=== PATIENT | female | born 1980 | race Caucasian/White ===

== ENCOUNTER → 2017-10-09 | Outpatient (CLI) | payer BC ==
--- NOTE | 2017-10-09 17:47 | SFUN ---
SLEEP STUDY FOLLOW UP NOTE DATE OF SERVICE: 10/09/2017 37-year-old lady has been [facility] for treatment of significant excessive daytime sleepiness. Presently she came to discuss results of polysomnogram and multiple sleep latency test. I discussed results of sleep studies with the patient in details. No any significant respiratory abnormalities during sleep study. Apnea-hypopnea index 1.0, lowest oxygen level 93.2%. Multiple sleep latency test showed pathological mean sleep latency only 1.7 minutes with 2 sleep onset REM periods. During the night study patient slept for 7 hours and 40 minutes. Latency to first REM period was slightly short 62.5 minutes, four REM periods have been documented during the night study. MEDICATIONS: None. PHYSICAL EXAM: GENERAL Patient in no distress. VITAL SIGNS BP 147/98, HR 108, RR 16, height 5 foot 5, weight 129, BMI 21.5. HEENT PERRLA, EOMI, evaluation of oropharynx showed moderately low position of soft palate. Overbite. NECK Supple, no JVD. Thyroid is not palpable. LUNGS Clear to percussion and to auscultation. Good air exchange. No wheezing or rhonchi. HEART S1, S2 tachycardia. No murmurs, gallops, or rubs. ABDOMEN Soft and nontender. Bowel sounds are present. No organomegaly appreciated. EXTREMITIES No clubbing or cyanosis. [employer]INE OPERATOR Awake, alert, and oriented X3. Cranial nerves 2 to 7 intact. There is no fasciculation or atrophy. noted. No focal deficits observed. IMPRESSION: 1. No significant respiratory abnormalities during sleep study. Normal oxygenation during the sleep. 2. 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 3. History of trigeminal neuralgia. 4. Status post total hysterectomy. 5. Status post breast augmentation. 6. Status post surgery on the tongue. PLAN: 1. Treatment with modafinil. I would prefer this medication because the patient has some tachycardia in the office. I will titrate the dose up to therapeutic level. 2. Sleep hygiene with regular time in bed for at least 7.5 hours. 3. Daytime naps permitted. 4. No driving if feeling any sleepiness. 5. HLA profile for narcolepsy. Thank you very much for allowing me to participate in management of your patient. Sincerely, Agustin Cordova MD, PhD, FAASM Diplomat of [employer] [place] [employer] Worker of [facility] [place] [email or web address] / ALLAN: [phone] /
== END | disposition home or self-care (01) ==
LOC: SLEEP 15:46
PROVIDERS: ATTEND Internal Medicine
DX: G47.8 Other sleep disorders (principal); G47.52 REM sleep behavior disorder; G47.419 Narcolepsy without cataplexy; Z86.69 Personal history of other diseases of the nervous system and sense organs; Z90.710 Acquired absence of both cervix and uterus; Z98.82 Breast implant status; Z98.890 Other specified postprocedural states

== ENCOUNTER 2019-08-08 00:18 | Emergency (ER) | payer BC ==
[2019-08-08 00:24] VITALS: TEMP 98.6
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
[2019-08-08 01:23] VITALS: BP 144/98; PULSE 84; RESP 16
== END 2019-08-08 01:47 | disposition home or self-care (01) ==
LOC: EC 00:18
DX: S60.222A Contusion of left hand, initial encounter (principal); F41.9 Anxiety disorder, unspecified; R06.02 Shortness of breath; Z87.891 Personal history of nicotine dependence; Z88.0 Allergy status to penicillin; Y04.0XXA Assault by unarmed brawl or fight, initial encounter; Y93.89 Activity, other specified
CPT/HCPCS: 71046; 93005; 99284

== ENCOUNTER 2019-10-11 10:52 | Observation (INO) | payer BC ==
[2019-10-11] MEDS ORDERED: METOCLOPRAMIDE 5 MG/ML 2 ML VIAL IVP STA (11:23)
[2019-10-11] MEDS ORDERED: diphenhydrAMINE 50 MG/ML 1 ML VIAL IVP STA (11:23)
[2019-10-11] MEDS ORDERED: SODIUM CHLORIDE 0.9% 1,000 ML IV ONE (11:23)
[2019-10-11] MEDS ORDERED: FAMOTIDINE 20 MG/2 ML VIAL IV STA (11:28)
--- NOTE | 2019-10-11 11:28 | ED ---
General Adult HPI - General Chief complaint: Chest Pain Stated complaint: chest pain, headache Time Seen by Provider: 10/11/19 11:05 Source: patient, RN notes reviewed, old records reviewed Mode of arrival: ambulatory Limitations: no limitations - History of Present Illness Initial comments: 39 -year-old female presenting for evaluation chest pain, EKG changes, headache. Patient was seen by her primary care physician, had EKG showing left ventricular hypertrophy and chest pain for the past 3 weeks. She was sent for evaluation of the ER. She has a stress test scheduled for Friday of this week which is 2 days from now patient has no history of coronary artery disease, no history of DVT or PE. She describes the chest pain as a burning sensation in the center of her chest. Second complaint today is of headache. She has a right-sided headache with photophobia. She states she does occasionally get headaches but this is more severe. Headache began at approximately 8:30 this morning, 3 hours prior to arrival. - Related Data Home Medications Medication Instructions Recorded Confirmed Dextroamphetamine/Amphetamine 20 mg PO PC-LUNCH 10/11/19 10/11/19 [Dextroamp-Amphetamin 20 mg Tab] Dextroamphetamine/Amphetamine 30 mg PO QAM 10/11/19 10/11/19 [Dextroamp-Amphetamin 20 mg Tab] Potassium Chloride ER [K-Dur 10] 10 meq PO DAILY 10/11/19 10/11/19 amLODIPine [Norvasc] 10 mg PO HS 10/11/19 10/11/19 lamoTRIgine [LaMICtal] 200 mg PO HS 10/11/19 10/11/19 Allergies Allergy/AdvReac Type Severity Reaction Status Date / Time Penicillins Allergy Rash/Hives Verified 10/11/19 12:11 Review of Systems ROS Statement: Those systems with pertinent positive or pertinent negative responses have been documented in the HPI. ROS Other: All systems not noted in ROS Statement are negative. Past Medical History Past Medical History: Hypertension Additional Past Medical History / Comment(s): nacrolepsy, anxiety History of Any Multi-Drug Resistant Organisms: None Reported Past Surgical History: Hysterectomy Additional Past Surgical History / Comment(s): breast augmentation Past Psychological History: Anxiety, Panic Disorder Smoking Status: Former smoker Past Alcohol Use History: Occasional Past Drug Use History: None Reported General Exam Limitations: no limitations General appearance: alert, in no apparent distress Head exam: Present: atraumatic, normocephalic Eye exam: Present: normal appearance, PERRL, EOMI. Absent: scleral icterus, periorbital swelling, periorbital tenderness ENT exam: Present: normal exam Neck exam: Present: normal inspection. Absent: tenderness, meningismus Respiratory exam: Present: normal lung sounds bilaterally. Absent: respiratory distress, wheezes Cardiovascular Exam: Present: regular rate, normal rhythm, normal heart sounds GI/Abdominal exam: Present: soft. Absent: distended, tenderness, guarding Extremities exam: Present: normal inspection, normal capillary refill. Absent: pedal edema Neurological exam: Present: alert, oriented X3, CN II-XII intact. Absent: motor sensory deficit Psychiatric exam: Present: normal affect, normal mood Skin exam: Present: warm, dry, intact. Absent: cyanosis, diaphoretic Course Vital Signs 10/11/19 11:07 Temperature 97.9 F Pulse Rate 93 Respiratory 18 Rate Blood Pressure 153/91 O2 Sat by Pulse 100 Oximetry EKG Findings - EKG Comments: EKG Findings:: EKG: Normal sinus rhythm, LVH, rate of 93, MN interval 126, QRS duration 92, QTC 467, no ST segment elevation Medical Decision Making - Medical Decision Making 31-year-old female sent from primary care office for evaluation of chest pain. EKG shows sinus rhythm with no ST segment elevation. Second complaint of headache. Patient's headache resolved with treatment in the emergency depa rtment. Head CT is negative for intracranial hemorrhage or mass effect. Chest x-ray negative for focal pneumonia no acute findings per patient has normal CBC, normal CMP, negative initial troponin. There was concern about patient's primary care physician regarding this chest pain. Recommend observation for serial enzymes, telemetry, cardiology consultation. - Lab Data Result diagrams: 10/11/19 11:12 10/11/19 11:12 Lab Results 10/11/19 10/11/19 10/11/19 Range/Units 11:12 11:12 11:12 WBC 5.0 (3.8-10.6) k/uL RBC 4.95 (3.80-5.40) m/uL Hgb 15.3 (11.4-16.0) gm/dL Hct 45.1 (34.0-46.0) % MCV 91.1 (80.0-100.0) fL MCH 31.0 (25.0-35.0) pg MCHC 34.0 (31.0-37.0) g/dL RDW 12.3 (11.5-15.5) % Plt Count 327 (150-450) k/uL Neutrophils % 59 % Lymphocytes % 31 % Monocytes % 5 % Eosinophils % 2 % Basophils % 1 % Neutrophils # 2.9 (1.3-7.7) k/uL Lymphocytes # 1.5 (1.0-4.8) k/uL Monocytes # 0.3 (0-1.0) k/uL Eosinophils # 0.1 (0-0.7) k/uL Basophils # 0.0 (0-0.2) k/uL PT 9.7 (9.0-12.0) sec INR 0.9 (<1.2) APTT 24.1 (22.0-30.0) sec Sodium 138 (137-145) mmol/L Potassium 3.7 (3.5-5.1) mmol/L Chloride 104 (98-107) mmol/L Carbon Dioxide 26 (22-30) mmol/L Anion Gap 8 mmol/L BUN 20 H (7-17) mg/dL Creatinine 0.63 (0.52-1.04) mg/dL Est GFR (CKD-EPI)AfAm >90 (>60 ml/min/1.73 sqM) Est GFR (CKD-EPI)NonAf >90 (>60 ml/min/1.73 sqM) Glucose 105 H (74-99) mg/dL Calcium 9.4 (8.4-10.2) mg/dL Magnesium 2.3 (1.6-2.3) mg/dL Total Bilirubin 0.8 (0.2-1.3) mg/dL AST 22 (14-36) U/L ALT 19 (4-34) U/L Alkaline Phosphatase 60 (38-126) U/L Troponin I (0.000-0.034) ng/mL Total Protein 7.8 (6.3-8.2) g/dL Albumin 4.9 (3.5-5.0) g/dL 10/11/19 Range/Units 11:12 WBC (3.8-10.6) k/uL RBC (3.80-5.40) m/uL Hgb (11.4-16.0) gm/dL Hct (34.0-46.0) % MCV (80.0-100.0) fL MCH (25.0-35.0) pg MCHC (31.0-37.0) g/dL RDW (11.5-15.5) % Plt Count (150-450) k/uL Neutrophils % % Lymphocytes % % Monocytes % % Eosinophils % % Basophils % % Neutrophils # (1.3-7.7) k/uL Lymphocytes # (1.0-4.8) k/uL Monocytes # (0-1.0) k/uL Eosinophils # (0-0.7) k/uL Basophils # (0-0.2) k/uL PT (9.0-12.0) sec INR (<1.2) APTT (22.0-30.0) sec Sodium (137-145) mmol/L Potassium (3.5-5.1) mmol/L Chloride (98-107) mmol/L Carbon Dioxide (22-30) mmol/L Anion Gap mmol/L BUN (7-17) mg/dL Creatinine (0.52-1.04) mg/dL Est GFR (CKD-EPI)AfAm (>60 ml/min/1.73 sqM) Est GFR (CKD-EPI)NonAf (>60 ml/min/1.73 sqM) Glucose (74-99) mg/dL Calcium (8.4-10.2) mg/dL Magnesium (1.6-2.3) mg/dL Total Bilirubin (0.2-1.3) mg/dL AST (14-36) U/L ALT (4-34) U/L Alkaline Phosphatase (38-126) U/L Troponin I <0.012 (0.000-0.034) ng/mL Total Protein (6.3-8.2) g/dL Albumin (3.5-5.0) g/dL Disposition Clinical Impression: Chest pain Disposition: ADMITTED IP TO THIS [facility] Condition: Stable Is patient prescribed a controlled substance at d/c from ED?: No Referrals: Shelbi Wright DO [Primary Care Provider] - 1-2 days Decision to Admit Reason: Admit from EC Decision Date: 10/11/19 Decision Time: 13:10
[2019-10-11 11:42] LABS: INR 0.9 (<1.2); Partial Thromboplastin Time 24.1 sec (22.0-30.0); Prothrombin Time 9.7 sec (9.0-12.0)
[2019-10-11 11:43] LABS: ALT 19 U/L (4-34); AST 22 U/L (14-36); African American GFR (CKD) >90 (>60 ml/min/1.73 sqM); Albumin 4.9 g/dL (3.5-5.0); Alkaline Phosphatase 60 U/L (38-126); Anion Gap 8 mmol/L; Blood Urea Nitrogen 20 mg/dL (7-17); Calcium 9.4 mg/dL (8.4-10.2); Carbon Dioxide 26 mmol/L (22-30); Chloride 104 mmol/L (98-107); Glucose 105 mg/dL (74-99); Magnesium 2.3 mg/dL (1.6-2.3); Non-African American GFR(CKD) >90 (>60 ml/min/1.73 sqM); Potassium 3.7 mmol/L (3.5-5.1); Sodium 138 mmol/L (137-145); Total Bilirubin 0.8 mg/dL (0.2-1.3); Total Protein 7.8 g/dL (6.3-8.2)
[2019-10-11 11:45] LABS: Basophils % (A) 1 %; Eosinophils # (A) 0.1 k/uL (0-0.7); Eosinophils % (A) 2 %; HCT 45.1 % (34.0-46.0); HGB 15.3 gm/dL (11.4-16.0); Lymphocytes # (A) 1.5 k/uL (1.0-4.8); Lymphocytes % (A) 31 %; MCV 91.1 fL (80.0-100.0); Mean Platelet Volume 7.7; Monocytes # (A) 0.3 k/uL (0-1.0); Monocytes % (A) 5 %; Neutrophils # (A) 2.9 k/uL (1.3-7.7); Neutrophils % (A) 59 %; Platelet Count 327 k/uL (150-450); RBC 4.95 m/uL (3.80-5.40); RDW 12.3 % (11.5-15.5)
--- NOTE | 2019-10-11 11:56 | CT ---
EXAMINATION TYPE: CT brain wo con DATE OF EXAM: 10/11/2019 COMPARISON: None HISTORY: Headache CT DLP: 1956.[address] of the brain was performed. The ventricles, basal cisterns and sulci overlying the cerebral convexities demonstrate a normal appe arance. There is no evidence for intracranial hemorrhage or sulcal effacement. No mass effects are seen. Osseous calvarium is intact. If symptoms persist consider MRI as clinically warranted. IMPRESSION: 1. No acute intracranial process is seen at this time.
--- NOTE | 2019-10-11 11:58 | XR ---
EXAMINATION TYPE: XR chest 2V DATE OF EXAM: 10/11/2019 COMPARISON: 08/08/2019 HISTORY: Chest pain TECHNIQUE: Frontal and lateral views of the chest are obtained. FINDINGS: There is no focal air space opacity, pleural effusion, or pneumothorax seen. Pulmonary hyp erinflation may relate to the degree of inspiration or COPD. The cardiac silhouette size is within no rmal limits. The osseous structures are intact. IMPRESSION: No acute cardiopulmonary process.
[2019-10-11] MEDS ORDERED: NALOXONE 0.4 MG/ML 1 ML VIAL IV PRN (13:07)
[2019-10-11] MEDS ORDERED: ONDANSETRON 4 MG/2 ML VIAL IVP PRN (13:07)
[2019-10-11] MEDS ORDERED: MORPHINE SULFATE 4 MG/ML SYRINGE IV PRN (13:07)
[2019-10-11] MEDS ORDERED: CALCIUM CARBONATE 500 MG CHEWABLE PO PRN (13:07)
[2019-10-11] MEDS: ACETAMINOPHEN TAB 325 MG TAB PO PRN ×2 (15:34→23:34)
[2019-10-11] MEDS: SODIUM CHLORIDE 0.9% 1,000 ML IV SCH (17:11)
[2019-10-11] MEDS ORDERED: amLODIPine 10 MG TAB PO SCH (21:00)
[2019-10-11] MEDS ORDERED: lamoTRIgine 100 MG TAB PO SCH (21:00)
[2019-10-12 07:28] VITALS: RESP 16
[2019-10-12] MEDS ORDERED: PANTOPRAZOLE 40 MG/10 ML VIAL IV SCH (09:00)
[2019-10-12] MEDS ORDERED: POTASSIUM CHLORIDE ER 10 MEQ TAB.ER.PRT PO SCH (09:00)
[2019-10-12] MEDS: ACETAMINOPHEN TAB 325 MG TAB PO PRN (09:54)
[2019-10-12] MEDS ORDERED: PANTOPRAZOLE 40 MG TABLET PO SCH (11:30)
--- NOTE | 2019-10-12 11:31 | P.CRDCN ---
<Remedios Falcon - Last Filed: 10/12/19 11:19> History of Present Illness History of present illness: HISTORY OF PRESENTING ILLNESS This is a pleasant 39-year-old female past medical history significant for a tension, narcolepsy and anxiety. Denies prior history of coronary artery disease and does not follow in the office with a product specialist. We have been asked to see in consultation for chest pain. She states for the previous 2-3 weeks intermittently she has been experiencing a dull achy type pain in her chest in the mid-sternal region with radiation at times through to her back. She was originally diagnosed with hypertension about 10 yrs ago and was medicated for some time however had stopped the medications about 4-6 yrs ago. Again in the last few months her blood pressures have been elevated again and she was recently started on amlodipine. On arrival blood pressure was 153/91. She has also been experiencing intermittent headaches unrelieved by OTC measures. DIAGNOSTICS EKG reveals sinus mechanism with considerable LVH. Chest xray negative for an acute cardiopulmonary process. CT brain negative for an acute intracranial process. Laboratory reviewed, CBC unremarkable, sodium 138, potassium 3.7, creatinine 0.63, magnesium 2.3, cardiac enzymes negative 3, TSH 1.3. Current cardiac medications include amlodipine 10 mg at bedtime. REVIEW OF SYSTEMS At the time of my exam: CONSTITUTIONAL: Denies fever or chills. CARDIOVASCULAR: Denies chest pain, shortness of breath, orthopnea, PND or palpitations. RESPIRATORY: Denies cough. GASTROINTESTINAL: Denies abdominal pain, diarrhea, constipation, nausea or vomiting. MUSCULOSKELETAL: Denies myalgias. NEUROLOGIC: Denies numbness, tingling or weakness. ENDOCRINE: Denies fatigue, weight change, polydipsia or polyurina. GENITOURINARY: Denies burning, hematuria or urgency with micturation. HEMATOLOGIC: Denies history of anemia or bleeding. PHYSICAL EXAMINATION Blood pressure 126/75 heart rate 84 afebrile and maintaining oxygen saturation on room air. CONSTITUTIONAL: No apparent distress. HEENT: Head is normocephalic. Pupils are equal, round. Sclerae anicteric. Mucous membranes of the mouth are moist. No JVD. No carotid bruit. CHEST EXAMINATION: Lungs are clear to auscultation. No chest wall tenderness is noted on palpation or with deep breathing. HEART EXAMINATION: Regular rate and rhythm. S1, S2 heard. No murmurs, gallops or rub. ABDOMEN: Soft, nontender. Positive bowel sounds. EXTREMITIES: 2+ peripheral pulses, no lower extremity edema and no calf tenderness. NEUROLOGIC EXAMINATION: Patient is awake, alert and oriented x3. ASSESSMENT Chest pain, atypical. An acute event has been ruled out. Hypertension, uncontrolled PLAN An acute coronary event has been ruled out. Obtain 2D echocardiogram and doppler study to assess cardiac structure and function. Perform exercise stress echo to assess for stress induced ischemia. Of more concern is her blood pressure and why she had hypertension at such a young age when it was first diagnosed. We will check b/l renal arteries, metaephrines, cortisol, renin and aldoseterone levels. Recommend discontinuation of adderall and complete alcohol cessation given her LVH. If stress test is normal she can be discharged and followed closely in the office with Dr. Del Rio on discharge. Thank you kindly for this consultation. Nurse Practitioner note has been reviewed, I agree with a documented findings and plan of care. Patient was seen and examined. Past Medical History Past Medical History: Hypertension Additional Past Medical History / Comment(s): nacrolepsy, anxiety History of Any Multi-Drug Resistant Organisms: None Reported Past Surgical History: Ablation, Hysterectomy Additional Past Surgical History / Comment(s): breast augmentation, uterine ablation Past Psychological History: Anxiety, Panic Disorder Smoking Status: Former smoker Past Alcohol Use History: Occasional Past Drug Use History: None Reported Medications and Allergies Home Medications Medication Instructions Recorded Confirmed Type Dextroamphetamine/Amphetamine 20 mg PO PC-LUNCH 10/11/19 10/11/19 History [Dextroamp-Amphetamin 20 mg Tab] Dextroamphetamine/Amphetamine 30 mg PO QAM 10/11/19 10/11/19 History [Dextroamp-Amphetamin 20 mg Tab] Potassium Chloride ER [K-Dur 10] 10 meq PO DAILY 10/11/19 10/11/19 History amLODIPine [Norvasc] 10 mg PO HS 10/11/19 10/11/19 History lamoTRIgine [LaMICtal] 200 mg PO HS 10/11/19 10/11/19 History Allergies Allergy/AdvReac Type Severity Reaction Status Date / Time Penicillins Allergy Rash/Hives Verified 10/11/19 12:11 Physical Exam Vitals: Vital Signs Temp Pulse Pulse Resp BP BP BP 10/12/19 07:00 98.2 F 84 16 126/75 10/12/19 04:00 97.9 F 75 18 114/70 10/12/19 03:28 77 18 10/12/19 00:00 98.3 F 84 18 118/72 10/11/19 19:42 82 18 10/11/19 19:39 98.2 F 82 18 131/79 10/11/19 13:50 98.1 F 86 18 129/78 10/11/19 13:00 88 19 126/78 10/11/19 12:30 89 12 10/11/19 12:00 87 16 152/89 10/11/19 11:30 96 14 153/91 Pulse Ox 10/12/19 07:00 98 10/12/19 04:00 98 10/12/19 03:28 10/12/19 00:00 99 10/11/19 19:42 10/11/19 19:39 98 10/11/19 13:50 99 10/11/19 13:00 100 10/11/19 12:30 100 10/11/19 12:00 100 10/11/19 11:30 100 Intake and Output 10/11/19 10/12/19 10/12/19 22:59 06:59 14:59 Intake Total 600 Balance 600 Intake: Oral 600 Other: Voiding Method Toilet Toilet Toilet # Voids 1 1 Weight 58.97 kg Results 10/11/19 11:12 10/11/19 11:12 Cardiac Enzymes 10/11/19 10/11/19 10/11/19 Range/Units 11:12 11:12 17:08 AST 22 (14-36) U/L Troponin I <0.012 <0.012 (0.000-0.034) ng/mL 10/11/19 Range/Units 23:22 AST (14-36) U/L Troponin I <0.012 (0.000-0.034) ng/mL Coagulation 10/11/19 Range/Units 11:12 PT 9.7 (9.0-12.0) sec APTT 24.1 (22.0-30.0) sec CBC 10/11/19 Range/Units 11:12 WBC 5.0 (3.8-10.6) k/uL RBC 4.95 (3.80-5.40) m/uL Hgb 15.3 (11.4-16.0) gm/dL Hct 45.1 (34.0-46.0) % Plt Count 327 (150-450) k/uL Comprehensive Metabolic Panel 10/11/19 Range/Units 11:12 Sodium 138 (137-145) mmol/L Potassium 3.7 (3.5-5.1) mmol/L Chloride 104 (98-107) mmol/L Carbon Dioxide 26 (22-30) mmol/L BUN 20 H (7-17) mg/dL Creatinine 0.63 (0.52-1.04) mg/dL Glucose 105 H (74-99) mg/dL Calcium 9.4 (8.4-10.2) mg/dL AST 22 (14-36) U/L ALT 19 (4-34) U/L Alkaline Phosphatase 60 (38-126) U/L Total Protein 7.8 (6.3-8.2) g/dL Albumin 4.9 (3.5-5.0) g/dL Current Medications Generic Name Dose Route Start Last Admin Trade Name Freq PRN Reason Stop Dose Admin Acetaminophen 650 mg 10/11/19 13:07 10/12/19 09:54 Tylenol Tab PO 650 mg Q6HR PRN Administration Mild Pain or Fever > 100.5 Amlodipine Besylate 10 mg 10/11/19 21:00 10/11/19 20:13 Norvasc PO 10 mg HS JAILYN Administration Calcium Carbonate/Glycine 1,000 mg 10/11/19 13:07 Tums PO Q4HR PRN Dyspepsia Sodium Chloride 1,000 mls @ 20 mls/hr 10/11/19 13:15 10/11/19 17:11 Saline 0.9% IV Not Given .Q24H JAILYN Lamotrigine 200 mg 10/11/19 21:00 10/11/19 20:13 Lamictal PO 200 mg HS JAILYN Administration Morphine Sulfate 4 mg 10/11/19 13:07 Morphine Sulfate (Inj) IV Q4HR PRN Severe Pain Naloxone HCl 0.2 mg 10/11/19 13:07 Narcan IV Q2M PRN Opioid Reversal Ondansetron HCl 4 mg 10/11/19 13:07 Zofran IVP Q8HR PRN Nausea And Vomiting Pantoprazole Sodium 40 mg 10/12/19 09:00 Protonix IV DAILY JAILYN Potassium Chloride 10 meq 10/12/19 09:00 K-Dur 10 PO DAILY JAILYN Intake and Output 10/11/19 10/12/19 10/12/19 22:59 06:59 14:59 Intake Total 600 Balance 600 Intake: Oral 600 Other: Voiding Method Toilet Toilet Toilet # Voids 1 1 Weight 58.97 kg Patient Weight 10/13/19 06:59 Weight 58.97 kg 10/11/19 11:12 10/11/19 11:12 <Hema Del Rio - Last Filed: 10/12/19 13:01> History of Present Illness History of present illness: Patient interviewed and examined by Dr. Del Rio History of hypertension with left ventricular hypertrophy Onset of hypertension before the age of 30 years Secondary hypertension workup will be initiated with serum aldosterone, plasma renin activity, metanephrines and renal artery stenosis evaluation Potassium has been mildly reduced Low salt diet Minimize alcohol consumption and avoid binge drinking, discussed in detail Risks of untreated hypertension including heart failure and stroke discussed Exercise stress echo today Physical Exam Vitals: Vital Signs Temp Pulse Resp BP BP Pulse Ox 10/12/19 11:40 98.3 F 98 16 125/85 98 10/12/19 07:00 98.2 F 84 16 126/75 98 10/12/19 04:00 97.9 F 75 18 114/70 98 10/12/19 03:28 77 18 10/12/19 00:00 98.3 F 84 18 118/72 99 10/11/19 19:42 82 18 10/11/19 19:39 98.2 F 82 18 131/79 98 10/11/19 13:50 98.1 F 86 18 129/78 99 Intake and Output 10/11/19 10/12/19 10/12/19 22:59 06:59 14:59 Intake Total 600 Balance 600 Intake: Oral 600 Other: Voiding Method Toilet Toilet Toilet # Voids 1 1 Weight 58.97 kg Results 10/11/19 11:12 10/11/19 11:12 Cardiac Enzymes 10/11/19 10/11/19 Range/Units 17:08 23:22 Troponin I <0.012 <0.012 (0.000-0.034) ng/mL Current Medications Generic Name Dose Route Start Last Admin Trade Name Freq PRN Reason Stop Dose Admin Acetaminophen 650 mg 10/11/19 13:07 10/12/19 09:54 Tylenol Tab PO 650 mg Q6HR PRN Administration Mild Pain or Fever > 100.5 Amlodipine Besylate 10 mg 10/11/19 21:00 10/11/19 20:13 Norvasc PO 10 mg HS JAILYN Administration Calcium Carbonate/Glycine 1,000 mg 10/11/19 13:07 Tums PO Q4HR PRN Dyspepsia Sodium Chloride 1,000 mls @ 20 mls/hr 10/11/19 13:15 10/11/19 17:11 Saline 0.9% IV Not Given .Q24H JAILYN Lamotrigine 200 mg 10/11/19 21:00 10/11/19 20:13 Lamictal PO 200 mg HS JAILYN Administration Morphine Sulfate 4 mg 10/11/19 13:07 Morphine Sulfate (Inj) IV Q4HR PRN Severe Pain Naloxone HCl 0.2 mg 10/11/19 13:07 Narcan IV Q2M PRN Opioid Reversal Ondansetron HCl 4 mg 10/11/19 13:07 Zofran IVP Q8HR PRN Nausea And Vomiting Pantoprazole Sodium 40 mg 10/12/19 11:30 Protonix PO AC-BRKFST JAILYN Potassium Chloride 10 meq 10/12/19 09:00 K-Dur 10 PO DAILY JAILYN Intake and Output 10/11/19 10/12/19 10/12/19 22:59 06:59 14:59 Intake Total 600 Balance 600 Intake: Oral 600 Other: Voiding Method Toilet Toilet Toilet # Voids 1 1 Weight 58.97 kg Patient Weight 10/13/19 06:59 Weight 58.97 kg 10/11/19 11:12 10/11/19 11:12
[2019-10-12 11:41] VITALS: TEMP 98.3
--- NOTE | 2019-10-12 13:14 | US ---
EXAMINATION TYPE: US renal artery duplex complet DATE OF EXAM: 10/12/2019 COMPARISON: NONE CLINICAL HISTORY: htn. MEASUREMENTS: RENAL SIZE: Rt Kidney: 10.9 x 3.5 x 5.0cm Lt Kidney: 10.9 x 4.8 x 4.5 RESISTANCE INDEX Right: 0.45 Left: 0.54 RA/AO RATIO (< 3.5 ) Right: 1.5 Left: 1.6 RA VELOCITY ( < 180 cm/s) Right: 114cm/s Left: 122cm/s Study slightly limited by overlying bowel gas. IMPRESSION: No sonographic evidence of renal artery stenosis.
[2019-10-12] MEDS: SODIUM CHLORIDE 0.9% 1,000 ML IV SCH (13:17)
[2019-10-12] MEDS ORDERED: methylPREDNISolone SOD SUCCI 125 MG/2 ML VIAL IV STA (15:53)
--- NOTE | 2019-10-12 15:56 | ECHOF ---
Referral Reason:cp, lvh MEASUREMENTS -------- HEIGHT: 165.1 cm WEIGHT: 59.0 kg BP: IVSd: 0.9 cm (0.6 - 1.1) LVIDd: 3.9 cm (3.9 - 5.3) LVPWd: 0.9 cm (0.6 - 1.1) IVSs: 1.2 cm LVIDs: 2.4 cm LVPWs: 1.2 cm RVIDd: 2.4 cm (< 3.3) Ao Diam: 3.4 cm (2.0 - 3.7) AV Cusp: 1.9 cm (1.5 - 2.6) EPSS: 0.6 cm MV E Shai: 0.63 m/s MV DecT: 181 ms MV A Shai: 0.60 m/s MV E/A Ratio: 1.06 RAP: 5.00 mmHg RVSP: 14.73 mmHg MV EF SLOPE: 104.97 mm/s (70 - 150) MV EXCURSION: 20.02 mm (> 18.000) FINDINGS -------- Sinus rhythm. This was a technically good study. LV size, wall thickness and systolic function are normal, with an EF greater than 55%. The left magnolia tricular size is normal. The right ventricle is normal in size. The left atrial size is normal. The right atrial size is normal. The aortic valve is trileaflet, and appears structurally normal. No aortic stenosis or regurgitation. Mild mitral regurgitation is present. Mild tricuspid regurgitation present. Right ventricular systolic pressure is normal at < 35 mmHg. There is no evidence of pulmonary hypertension. There is no pulmonic regurgitation present. The aortic root size is normal. There is no pericardial effusion. CONCLUSIONS -------- 1. Sinus rhythm. 2. This was a technically good study. 3. LV size, wall thickness and systolic function are normal, with an EF greater than 55%. 4. The left ventricular size is normal. 5. The right ventricle is normal in size. 6. The left atrial size is normal. 7. The right atrial size is normal. 8. The aortic valve is trileaflet, and appears structurally normal. No aortic stenosis or regurgitati on. 9. Mild mitral regurgitation is present. 10. Mild tricuspid regurgitation present. 11. Right ventricular systolic pressure is normal at < 35 mmHg. 12. There is no evidence of pulmonary hypertension. 13. There is no pulmonic regurgitation present. 14. The aortic root size is normal. 15. There is no pericardial effusion. POLE INSPECTOR: Renetta Hess RDCS
[2019-10-12 16:00] VITALS: BP 125/77; PULSE 89
--- NOTE | 2019-10-12 16:14 | ECHOS ---
STRESS ECHOCARDIOGRAM LUMASON: @@ Vial INDICATIONS: Chest pain. MEDICATIONS: Adderall, Lortab, K-Dur, Norvasc, Lamictal BASELINE HEART RATE: 73 BASELINE BLOOD PRESSURE: 124/72 MAXIMUM HEART RATE: 170 MAXIMUM BLOOD PRESSURE: 169/86 85% MPHR: 155 100% MPHR: 182 METS: 12.1 MAXIMUM STAGE REACHED: IV TOTAL EXERCISE TIME: 12:00 CLINICAL INFORMATION: This is a 39-year-old female who presented with chest discomfort and stress echo was performed. Baseline heart rate 73 beats per minute. Baseline blood pressure 124/72 mmHg. Baseline 12-lead ECG shows normal sinus rhythm with normal cardiac intervals. The patient exercised on a Esa protocol for 12 minutes, achieving a peak heart rate of 170 beats per minute. Normal blood pressure response to exercise. There was no ECG evidence for ischemia. No arrhythmias were noted. Baseline 2D echo images showed normal LV size and systolic function without segmental wall motion abnormalities. At peak exercise, there was excellent augmentation of overall LV contractility without development of any wall motion abnormalities. At recovery, regional global LV systolic function remained normal. IMPRESSION: No ECG or echocardiographic evidence for ischemia. Normal heart rate and blood pressure response to exercise. Excellent exercise capacity. MMODL / IJN: [id number] /
--- NOTE | 2019-10-12 22:42 | P.HPIM ---
History of Present Illness H&P Date: 10/12/19 Chief Complaint: chest pain Diana Turk is a 39-year-old female with PMH significant for hypertension, anxiety who presented to the ED with chest pain. She states for the previous 2-3 weeks intermittently she has been experiencing a dull achy type pain in her chest in the mid-sternal region with radiation at times through to her back. She feels she has been having URI symptoms over this time as well with congesiton and cough. She feels cough makes her chest pain worse. She was originally diagnosed with hypertension about 10 yrs ago and was medicated for some time however had stopped the medications about 4-6 yrs ago. Again in the last few months her blood pressures have been elevated again and she was recently started on amlodipine. On arrival blood pressure was 153/91, trop negative, EKG with sinus rhythm. Review of Systems All systems: negative Constitutional: Denies chills, Denies fever Eyes: denies blurred vision, denies pain Ears, nose, mouth and throat: Reports nasal congestion, Reports post-nasal drip, Denies headache, Denies sore throat Cardiovascular: Reports chest pain, Denies lightheadedness, Denies shortness of breath Respiratory: Reports cough Gastrointestinal: Denies abdominal pain, Denies diarrhea, Denies nausea, Denies vomiting Genitourinary: Denies dysuria, Denies hematuria Musculoskeletal: Denies myalgias Integumentary: Denies pruritus, Denies rash Neurological: Denies numbness, Denies weakness Psychiatric: Denies anxiety, Denies depression Endocrine: Denies fatigue, Denies weight change Past Medical History Past Medical History: Hypertension Additional Past Medical History / Comment(s): nacrolepsy, anxiety History of Any Multi-Drug Resistant Organisms: None Reported Past Surgical History: Ablation, Hysterectomy Additional Past Surgical History / Comment(s): breast augmentation, uterine ablation Past Psychological History: Anxiety, Panic Disorder Smoking Status: Former smoker Past Alcohol Use History: Occasional Past Drug Use History: None Reported Medications and Allergies Home Medications Medication Instructions Recorded Confirmed Type Dextroamphetamine/Amphetamine 20 mg PO PC-LUNCH 10/11/19 10/11/19 History [Dextroamp-Amphetamin 20 mg Tab] Dextroamphetamine/Amphetamine 30 mg PO QAM 10/11/19 10/11/19 History [Dextroamp-Amphetamin 20 mg Tab] Potassium Chloride ER [K-Dur 10] 10 meq PO DAILY 10/11/19 10/11/19 History amLODIPine [Norvasc] 10 mg PO HS 10/11/19 10/11/19 History lamoTRIgine [LaMICtal] 200 mg PO HS 10/11/19 10/11/19 History Allergies Allergy/AdvReac Type Severity Reaction Status Date / Time Penicillins Allergy Rash/Hives Verified 10/11/19 12:11 Physical Exam Vitals: Vital Signs Temp Pulse Resp BP BP Pulse Ox 10/12/19 15:59 98.3 F 89 16 125/77 98 10/12/19 11:40 98.3 F 98 16 125/85 98 10/12/19 07:00 98.2 F 84 16 126/75 98 10/12/19 04:00 97.9 F 75 18 114/70 98 10/12/19 03:28 77 18 10/12/19 00:00 98.3 F 84 18 118/72 99 Intake and Output 10/12/19 10/12/19 10/12/19 06:59 14:59 22:59 Intake Total 322 Balance 322 Intake: Oral 222 Other 100 Other: Voiding Method Toilet Toilet # Voids 1 Weight 58.97 kg General: well nourished, well developed, NAD. Vitals reviewed Eyes: PERRL, EOMI, conjunctiva normal HENT: normocephalic, mucus membranes moist Neck: supple, no JVD Lungs: normal respiratory effort, no wheezes or rales CV: Regular rate and rhythm, no murmur. Peripheral pulses 2+ Abdomen: soft, nondistended, no organomegaly Lymph: no cervical or axillary LAD Skin: warm and dry. Neuro: A&Ox3, normal mood and affect Results CBC & Chem 7: 10/11/19 11:12 10/11/19 11:12 Thrombosis Risk Factor Assmnt - Choose All That Apply Any of the Below Risk Factors Present?: No Other Risk Factors: No Thrombosis Risk Factor Assessment Level: Very Low Risk Assessment and Plan (1) Viral URI Status: Acute Code(s): J06.9 - ACUTE UPPER RESPIRATORY INFECTION, UNSPECIFIED SNOMED Code(s): 380091316 (2) Chest pain Status: Acute Code(s): R07.9 - CHEST PAIN, UNSPECIFIED SNOMED Code(s): 24762025 Plan: 1. Chest pain. ACS ruled out. Cardiology consulted for further evaluation; suspected related to viral illness 2. HTN. Continue norvasc
--- NOTE | 2019-10-12 22:44 | P.DS ---
Providers Date of admission: 10/11/19 13:07 Expected date of discharge: 10/12/19 Attending physician: Martínez Silverio MD Consults: 10/11/19 13:07 Consult Physician Routine Consulting Provider: Tim Jordan Consult Reason/Comments: CP Do you want consulting provider notified?: Yes Primary care physician: Shelbi Wright - Discharge Diagnosis(es) (1) Viral URI Status: Acute (2) Chest pain Status: Acute Hospital Course: Diana Turk is a 39-year-old female with PMH significant for hypertension, anxiety who presented to the ED with chest pain. She states for the previous 2-3 weeks intermittently she has been experiencing a dull achy type pain in her chest in the mid-sternal region with radiation at times through to her back. She feels she has been having URI symptoms over this time as well with congesiton and cough. She feels cough makes her chest pain worse. She was originally diagnosed with hypertension about 10 yrs ago and was medicated for some time however had stopped the medications about 4-6 yrs ago. Again in the last few months her blood pressures have been elevated again and she was recently started on amlodipine. On arrival blood pressure was 153/91, trop negative, EKG with sinus rhythm. Pt was admitted to observation and evaluated by cardiology. She underwent stress echo as well as renal artery ultrasound which were normal. She was given solumedrol for suspected viral URI and is discharged in stable condition and recommended to follow up with her PCP and tmr teacher. Patient Condition at Discharge: Stable Plan - Discharge Summary Discharge Rx Participant: No New Discharge Prescriptions: Continue lamoTRIgine [LaMICtal] 200 mg PO HS amLODIPine [Norvasc] 10 mg PO HS Potassium Chloride ER [K-Dur 10] 10 meq PO DAILY Dextroamphetamine/Amphetamine [Dextroamp-Amphetamin 20 mg Tab] 30 mg PO QAM Dextroamphetamine/Amphetamine [Dextroamp-Amphetamin 20 mg Tab] 20 mg PO PC- LUNCH Discharge Medication List Dextroamphetamine/Amphetamine [Dextroamp-Amphetamin 20 mg Tab] 20 mg PO PC-LUNCH 10/11/19 [History] Dextroamphetamine/Amphetamine [Dextroamp-Amphetamin 20 mg Tab] 30 mg PO QAM 10/11/19 [History] Potassium Chloride ER [K-Dur 10] 10 meq PO DAILY 10/11/19 [History] amLODIPine [Norvasc] 10 mg PO HS 10/11/19 [History] lamoTRIgine [LaMICtal] 200 mg PO HS 10/11/19 [History] Follow up Appointment(s)/Referral(s): Hema Del Rio MD [STAFF PHYSICIAN] - 11/02/19 9:30 am () Shelbi Wright DO [Primary Care Provider] - 1-2 days Discharge Disposition: HOME SELF-CARE
== END 2019-10-12 16:27 | disposition home or self-care (01) ==
LOC: EC 10:52 → 1SOBS 13:07 → UNDODISOB 10-12 15:19
PROVIDERS: ADMIT Family Medicine; ATTEND Family Medicine
DX: J06.9 Acute upper respiratory infection, unspecified (principal); R07.9 Chest pain, unspecified; I10 Essential (primary) hypertension; F41.9 Anxiety disorder, unspecified; G47.419 Narcolepsy without cataplexy; Z87.891 Personal history of nicotine dependence; Z90.710 Acquired absence of both cervix and uterus; Z79.899 Other long term (current) drug therapy; Z88.0 Allergy status to penicillin
CPT/HCPCS: 93005 ×2; 96375 ×2; 96361; 96374; 99285; 36415; 93306; 93351; 83835; 80053; 84443; 82533; 82088; 84244; 83735; 84484; 85025; 85610; 85730; 71046; 93975; 70450; G0378 ×2; J1200; J2765; J2930

== ENCOUNTER → 2020-02-04 | Outpatient (CLI) | payer BC, OTHER ==
[2020-02-04 15:16] LABS: C Reactive Protein <5.0 mg/L (<10.0)
--- NOTE | 2020-02-04 15:50 | US ---
EXAMINATION TYPE: US abdomen complete DATE OF EXAM: 02/04/2020 COMPARISON: NONE CLINICAL HISTORY: R14.0 ABDOMINAL DISTENSION. Pain and bloating EXAM MEASUREMENTS: Liver Length: 14.2 cm Gallbladder Wall: .2 cm CBD: .4 cm Spleen: 9.6 cm Right Kidney: 10.1 x 3.6 x 4.5 cm Left Kidney: 9.0 x 4.8 x 3.8 cm Pancreas: wnl Liver: Mild heterogeneity suggest some mild underlying fatty dictation. Gallbladder: wnl Evidence for sonographic Lindsey's sign: No CBD: wnl Spleen: wnl Right Kidney: wnl Left Kidney: wnl Upper IVC: wnl Abd Aorta: wnl IMPRESSION: 1. Mild fatty infiltration of liver.
[2020-02-04 18:21] LABS: Gliadin AB IgA, Deaminated NEGATIVE (NEGATIVE); Gliadin AB IgA, Unit <0.2 U/mL; Gliadin AB IgG, Deaminated NEGATIVE (NEGATIVE)
== END | disposition home or self-care (01) ==
LOC: RADUSWWP 14:38
PROVIDERS: ATTEND Physician Assistant
DX: K76.0 Fatty (change of) liver, not elsewhere classified (principal); R14.0 Abdominal distension (gaseous)
CPT/HCPCS: 76700; 83516; 84443; 85652; 86140

== ENCOUNTER 2020-06-05 17:45 | Emergency (ER) | payer BC, OTHER ==
[2020-06-05 18:32] VITALS: TEMP 98.7
[2020-06-05] MEDS ORDERED: IBUPROFEN 600 MG TAB PO STA (19:10)
[2020-06-05 19:52] VITALS: RESP 16
--- NOTE | 2020-06-05 20:19 | XR ---
EXAMINATION TYPE: XR chest 2V DATE OF EXAM: 06/05/2020 COMPARISON: 10/11/2019. HISTORY: Sore throat and fatigue. TECHNIQUE: Frontal and lateral views of the chest are obtained. FINDINGS: There is no focal air space opacity, pleural effusion, or pneumothorax seen. The cardiac silhouette size is within normal limits. The osseous structures are intact. IMPRESSION: No acute cardiopulmonary process.
--- NOTE | 2020-06-05 20:49 | ED ---
General Adult HPI - General Chief complaint: Upper Respiratory Infection Stated complaint: sore throat/headache/back pain Time Seen by Provider: 06/05/20 18:35 Source: patient Mode of arrival: ambulatory Limitations: no limitations - History of Present Illness Initial comments: 40-year-old female presents to the emergency department with complaints of sore throat accompanied by intermittent painful swallowing and chills. Also complains of nasal drainage that she describes as thin and clear. Reports increased fatigue along with mild headache and states her symptoms have progressively worsened over the past week. Complains of pain in her left upper chest and back that worsens with palpation and movement. Patient does express concern about a possible COVID exposure as well. Also states that multiple members of her household have been ill with viral upper respiratory infections recently. Patient mentions she currently has numbness around her mouth that does not affect her tongue or her lips; states it began while in the emergency department and previously occurred last Friday. He states the numbness resolved spontaneously and was not accompanied by any speech difficulties. Patient denies any recent rash, fever, cough, shortness of breath, abdominal pain, nausea, vomiting, diarrhea, constipation, tingling, dizziness, weakness, justin turia, dysuria, urinary urgency, urinary frequency, visual changes, or any other complaints. - Related Data Home Medications Medication Instructions Recorded Confirmed Dextroamphetamine/Amphetamine 20 mg PO PC-LUNCH 10/11/19 10/11/19 [Dextroamp-Amphetamin 20 mg Tab] Dextroamphetamine/Amphetamine 30 mg PO QAM 10/11/19 10/11/19 [Dextroamp-Amphetamin 20 mg Tab] Potassium Chloride ER [K-Dur 10] 10 meq PO DAILY 10/11/19 10/11/19 amLODIPine [Norvasc] 10 mg PO HS 10/11/19 10/11/19 lamoTRIgine [LaMICtal] 200 mg PO HS 10/11/19 10/11/19 Previous Rx's Medication Instructions Recorded Fluticasone Nasal Marble [Flonase 2 spr EA NOSTRIL DAILY #1 bottle 06/05/20 Nasal Marble] guaiFENesin-DM 600/30MG [Mucinex 1 each PO Q12HR #10 tab.er.12h 06/05/20 Dm] Allergies Allergy/AdvReac Type Severity Reaction Status Date / Time Penicillins Allergy Rash/Hives Verified 06/05/20 18:30 Review of Systems ROS Statement: Those systems with pertinent positive or pertinent negative responses have been documented in the HPI. ROS Other: All systems not noted in ROS Statement are negative. Past Medical History Past Medical History: Hypertension Additional Past Medical History / Comment(s): nacrolepsy, anxiety History of Any Multi-Drug Resistant Organisms: None Reported Past Surgical History: Ablation, Hysterectomy Additional Past Surgical History / Comment(s): breast augmentation, uterine ablation Past Psychological History: Anxiety, Panic Disorder Past Alcohol Use History: Occasional Past Drug Use History: None Reported General Exam Limitations: no limitations (Well-developed, well-nourished female in no acute distress. Present to temperature 98.7F, pulse 62, respirations 18, blood pressure 162/96, pulse ox 100% on room air.) General appearance: alert, in no apparent distress ENT exam: Present: mucous membranes moist, TM's normal bilaterally Expanded Throat exam: tonsillar erythema. negative: tonsillomegaly, tonsillar exudate Respiratory exam: Present: normal lung sounds bilaterally. Absent: respiratory distress, wheezes, rales, rhonchi, stridor Cardiovascular Exam: Present: regular rate, normal rhythm, normal heart sounds. Absent: systolic murmur, diastolic murmur, rubs, gallop, clicks GI/Abdominal exam: Present: soft, normal bowel sounds. Absent: distended, tenderness, guarding, rebound, rigid Neurological exam: Present: alert, oriented X3, CN II-XII intact Psychiatric exam: Present: normal affect, normal mood Skin exam: Present: warm, dry, intact, normal color. Absent: rash Course Vital Signs 06/05/20 06/05/20 06/05/20 18:28 19:49 21:07 Temperature 98.7 F Pulse Rate 62 83 Respiratory 18 16 16 Rate Blood Pressure 162/96 163/91 O2 Sat by Pulse 100 95 Oximetry Medical Decision Making - Medical Decision Making 40-year-old female presents to the emergency Department with multiple complaints including sore throat, nasal drainage, headache, and fatigue. Patient reports multiple household members with viral upper respiratory infections and a concern for possible COVID exposure. Patient states her symptoms have progressively worsened over the past week. Oropharynx is found to be reddened but no tonsillar hypertrophy or exudate is noted. Patient is afebrile and is not tachycardic or tachypneic. Patient was swabbed for influenza and strep a, both of which were negative. Covid swab is pending. Patient also reports circumoral numbness that does not affect her lips or tongue; speech remains fluent and coordinated. Patient was given Motrin for discomfort and Mucinex for nasal symptoms with overall improvement. Patient instructed to follow-up with her primary care provider in the next 1-2 days for recheck. Encouraged to return to the emergency department if she develops any chest pain, shortness of breath, difficulty breathing. Patient verbalizes understanding and agrees with this plan. - Lab Data Lab Results 06/05/20 06/05/20 Range/Units 19:09 19:10 Influenza Type A RNA Not Detected (Not Detectd) Influenza Type B (PCR) Not Detected (Not Detectd) Group A Strep Rapid Negative (Negative) - Radiology Data Radiology results: report reviewed 2 view chest x-ray was obtained. Impression per DR. Shah includes no acute cardiopulmonary process. Disposition Clinical Impression: Upper respiratory infection, Sinusitis Disposition: HOME SELF-CARE Condition: Good Instructions (If sedation given, give patient instructions): Upper Respiratory Infection (ED), Allergies (ED) Additional Instructions: Use Flonase as directed. Use mucinex DM as directed. Await COVID-19 results. Follow-up with your primary care physician for recheck in 1-2 days. Return to the emergency department immediately for any new, worsening, or concerning symptoms. Prescriptions: Fluticasone Nasal Marble [Flonase Nasal Marble] 2 spr EA NOSTRIL DAILY #1 bottle guaiFENesin-DM 600/30MG [Mucinex Dm] 1 each PO Q12HR #10 tab.er.12h Is patient prescribed a controlled substance at d/c from ED?: No Referrals: Shelbi Wright DO [Primary Care Provider] - 1-2 days Time of Disposition: 20:49
[2020-06-05] MEDS ORDERED: guaiFENesin-DM 600/30MG 1 EACH TAB.ER.12H PO STA (20:54)
[2020-06-05 21:08] VITALS: BP 163/91; PULSE 83
== END 2020-06-05 21:09 | disposition home or self-care (01) ==
LOC: EC 17:45
DX: J01.90 Acute sinusitis, unspecified (principal); R20.0 Anesthesia of skin; I10 Essential (primary) hypertension; F41.9 Anxiety disorder, unspecified; Z79.899 Other long term (current) drug therapy; Z88.0 Allergy status to penicillin; Z20.828 Contact with and (suspected) exposure to other viral communicable diseases
CPT/HCPCS: 87081; 87430; 87502; 71046; 99283; U0003

== ENCOUNTER 2020-10-02 03:08 | Observation (INO) | payer BC, OTHER ==
[2020-10-02] MEDS ORDERED: ONDANSETRON 4 MG/2 ML VIAL IVP STA (03:29)
[2020-10-02] MEDS ORDERED: SODIUM CHLORIDE 0.9% 1,000 ML IV STA (03:29)
[2020-10-02] MEDS ORDERED: PANTOPRAZOLE 40 MG/10 ML VIAL IVP STA (03:29)
[2020-10-02] MEDS ORDERED: MORPHINE SULFATE 4 MG/ML SYRINGE IVP STA (03:31)
--- NOTE | 2020-10-02 03:32 | ED ---
Abdominal Pain HPI - General Chief Complaint: Abdominal Pain Stated Complaint: ABD pain Time Seen by Provider: 10/02/20 03:10 Source: patient, RN notes reviewed, old records reviewed Mode of arrival: ambulatory Limitations: no limitations - History of Present Illness Initial Comments: This is a 31-year-old female DF she presents today for evaluation regards to bilateral oophorectomy all day. She is about 12 hours of his symptoms of persistent bowel movements. Also abdominal pain cramping and bloating. Otherwise no recent travel history no similar patients with similar symptoms. No prior history of similar symptoms per patient herself. The blood is just blood Doppler was still with no history of hemorrhoids. Patient very anxious and feels weak has seen GI in the past with colonoscopy in the past MD Complaint: abdominal pain, other (GI bleed) -: hour(s) Location: diffuse, bilateral flank Radiation: bilateral flank Migration to: no migration Severity scale (1-10): 6 Quality: cramping, stabbing, aching Consistency: constant, intermittent Improves With: bowel movement Associated Symptoms: nausea, vomiting - Related Data Home Medications Medication Instructions Recorded Confirmed Dextroamphetamine/Amphetamine 20 mg PO PC-LUNCH 10/11/19 10/11/19 [Dextroamp-Amphetamin 20 mg Tab] Dextroamphetamine/Amphetamine 30 mg PO QAM 10/11/19 10/11/19 [Dextroamp-Amphetamin 20 mg Tab] Potassium Chloride ER [K-Dur 10] 10 meq PO DAILY 10/11/19 10/11/19 amLODIPine [Norvasc] 10 mg PO HS 10/11/19 10/11/19 lamoTRIgine [LaMICtal] 200 mg PO HS 10/11/19 10/11/19 Previous Rx's Medication Instructions Recorded Fluticasone Nasal Junior [Flonase 2 spr EA NOSTRIL DAILY #1 bottle 06/05/20 Nasal Junior] guaiFENesin-DM 600/30MG [Mucinex 1 each PO Q12HR #10 tab.er.12h 06/05/20 Dm] Allergies Allergy/AdvReac Type Severity Reaction Status Date / Time Penicillins Allergy Rash/Hives Verified 10/02/20 03:17 Review of Systems ROS Statement: Those systems with pertinent positive or pertinent negative responses have been documented in the HPI. ROS Other: All systems not noted in ROS Statement are negative. Past Medical History Past Medical History: GERD/Reflux, Hypertension Additional Past Medical History / Comment(s): nacrolepsy, anxiety History of Any Multi-Drug Resistant Organisms: None Reported Past Surgical History: Ablation, Hysterectomy Additional Past Surgical History / Comment(s): breast augmentation, uterine ablation Past Psychological History: Anxiety, Panic Disorder Smoking Status: Former smoker Past Alcohol Use History: Occasional Past Drug Use History: None Reported General Exam Limitations: no limitations Course Vital Signs 10/02/20 03:13 Temperature 98.7 F Pulse Rate 88 Respiratory 20 Rate Blood Pressure 155/100 O2 Sat by Pulse 99 Oximetry Medical Decision Making - Medical Decision Making 40 female DF for evaluation of bright red blood per rectum. Patient will be admitted for Dr. Knight to see evaluating - Lab Data Result diagrams: 10/02/20 03:31 10/02/20 03:31 Lab Results 10/02/20 10/02/20 10/02/20 Range/Units 03:31 03:31 03:31 WBC 11.6 H (3.8-10.6) k/uL RBC 5.44 H (3.80-5.40) m/uL Hgb 16.7 H (11.4-16.0) gm/dL Hct 49.7 H (34.0-46.0) % MCV 91.4 (80.0-100.0) fL MCH 30.6 (25.0-35.0) pg MCHC 33.5 (31.0-37.0) g/dL RDW 12.9 (11.5-15.5) % Plt Count 289 (150-450) k/uL MPV 8.5 Neutrophils % 77 % Lymphocytes % 15 % Monocytes % 4 % Eosinophils % 2 % Basophils % 1 % Neutrophils # 9.0 H (1.3-7.7) k/uL Lymphocytes # 1.8 (1.0-4.8) k/uL Monocytes # 0.5 (0-1.0) k/uL Eosinophils # 0.2 (0-0.7) k/uL Basophils # 0.1 (0-0.2) k/uL PT 9.7 (9.0-12.0) sec INR 0.9 (<1.2) APTT 23.0 (22.0-30.0) sec Sodium 136 L (137-145) mmol/L Potassium 3.8 (3.5-5.1) mmol/L Chloride 100 (98-107) mmol/L Carbon Dioxide 22 (22-30) mmol/L Anion Gap 14 mmol/L BUN 15 (7-17) mg/dL Creatinine 0.64 (0.52-1.04) mg/dL Est GFR (CKD-EPI)AfAm >90 (>60 ml/min/1.73 sqM) Est GFR (CKD-EPI)NonAf >90 (>60 ml/min/1.73 sqM) Glucose 99 (74-99) mg/dL Calcium 9.3 (8.4-10.2) mg/dL Magnesium 2.1 (1.6-2.3) mg/dL Total Bilirubin 0.8 (0.2-1.3) mg/dL AST 31 (14-36) U/L ALT 38 H (4-34) U/L Alkaline Phosphatase 71 (38-126) U/L Troponin I (0.000-0.034) ng/mL Total Protein 8.5 H (6.3-8.2) g/dL Albumin 5.1 H (3.5-5.0) g/dL Lipase 72 (23-300) U/L Blood Type Blood Type Recheck Bld Type Recheck Status Antibody Screen Spec Expiration Date 10/02/20 10/02/20 Range/Units 03:31 03:31 WBC (3.8-10.6) k/uL RBC (3.80-5.40) m/uL Hgb (11.4-16.0) gm/dL Hct (34.0-46.0) % MCV (80.0-100.0) fL MCH (25.0-35.0) pg MCHC (31.0-37.0) g/dL RDW (11.5-15.5) % Plt Count (150-450) k/uL MPV Neutrophils % % Lymphocytes % % Monocytes % % Eosinophils % % Basophils % % Neutrophils # (1.3-7.7) k/uL Lymphocytes # (1.0-4.8) k/uL Monocytes # (0-1.0) k/uL Eosinophils # (0-0.7) k/uL Basophils # (0-0.2) k/uL PT (9.0-12.0) sec INR (<1.2) APTT (22.0-30.0) sec Sodium (137-145) mmol/L Potassium (3.5-5.1) mmol/L Chloride (98-107) mmol/L Carbon Dioxide (22-30) mmol/L Anion Gap mmol/L BUN (7-17) mg/dL Creatinine (0.52-1.04) mg/dL Est GFR (CKD-EPI)AfAm (>60 ml/min/1.73 sqM) Est GFR (CKD-EPI)NonAf (>60 ml/min/1.73 sqM) Glucose (74-99) mg/dL Calcium (8.4-10.2) mg/dL Magnesium (1.6-2.3) mg/dL Total Bilirubin (0.2-1.3) mg/dL AST (14-36) U/L ALT (4-34) U/L Alkaline Phosphatase (38-126) U/L Troponin I <0.012 (0.000-0.034) ng/mL Total Protein (6.3-8.2) g/dL Albumin (3.5-5.0) g/dL Lipase (23-300) U/L Blood Type O Positive Blood Type Recheck O Pos Bld Type Recheck Status No Antibody Screen NEGATIVE Spec Expiration Date 10/05/20202330 - Radiology Data Radiology results: report reviewed (CT abdomen and pelvis is negative for acute disease), image reviewed Disposition Clinical Impression: Abdominal pain, BRBPR (bright red blood per rectum) Disposition: ADMITTED IP TO THIS [facility] Condition: Good Is patient prescribed a controlled substance at d/c from ED?: No Referrals: Shelbi Wright DO [Primary Care Provider] - 1-2 days
[2020-10-02 03:50] LABS: Basophils # (A) 0.1 k/uL (0-0.2); Basophils % (A) 1 %; Eosinophils # (A) 0.2 k/uL (0-0.7); Eosinophils % (A) 2 %; HCT 49.7 % (34.0-46.0); HGB 16.7 gm/dL (11.4-16.0); Lymphocytes # (A) 1.8 k/uL (1.0-4.8); Lymphocytes % (A) 15 %; MCH 30.6 pg (25.0-35.0); MCHC 33.5 g/dL (31.0-37.0); MCV 91.4 fL (80.0-100.0); Mean Platelet Volume 8.5; Monocytes # (A) 0.5 k/uL (0-1.0); Monocytes % (A) 4 %; Neutrophils % (A) 77 %; Platelet Count 289 k/uL (150-450); RBC 5.44 m/uL (3.80-5.40); RDW 12.9 % (11.5-15.5); WBC 11.6 k/uL (3.8-10.6)
[2020-10-02 04:00] LABS: ALT 38 U/L (4-34); AST 31 U/L (14-36); African American GFR (CKD) >90 (>60 ml/min/1.73 sqM); Albumin 5.1 g/dL (3.5-5.0); Alkaline Phosphatase 71 U/L (38-126); Anion Gap 14 mmol/L; Blood Urea Nitrogen 15 mg/dL (7-17); Calcium 9.3 mg/dL (8.4-10.2); Carbon Dioxide 22 mmol/L (22-30); Chloride 100 mmol/L (98-107); Glucose 99 mg/dL (74-99); Lipase 72 U/L (23-300); Magnesium 2.1 mg/dL (1.6-2.3); Non-African American GFR(CKD) >90 (>60 ml/min/1.73 sqM); Potassium 3.8 mmol/L (3.5-5.1); Sodium 136 mmol/L (137-145); Total Bilirubin 0.8 mg/dL (0.2-1.3); Total Protein 8.5 g/dL (6.3-8.2)
[2020-10-02 04:19] LABS: INR 0.9 (<1.2); Prothrombin Time 9.7 sec (9.0-12.0)
--- NOTE | 2020-10-02 05:56 | CT ---
EXAM: CT Abdomen and Pelvis With Intravenous Contrast CLINICAL HISTORY: Epigastric pain, left flank, history of hysterectomy. TECHNIQUE: Axial computed tomography images of the abdomen and pelvis with intravenous contrast. CTDI is 15.17 mGy and DLP is 648.5 mGy-cm. This CT exam was performed using one or more of the following dose reduction techniques: automated exposure control, adjustment of the mA and/or kV according to patient size, and/or use of iterative reconstruction technique. COMPARISON: No relevant prior studies available. FINDINGS: Lung bases: Unremarkable. No mass. No consolidation. Mediastinum: Small hiatal hernia. ABDOMEN: Liver: Hepatomegaly and/or Rudy's lobe, measuring up to 19.4 cm in greatest craniocaudad dimension, with mild steatosis. Gallbladder and bile ducts: Unremarkable. No calcified stones. No ductal dilation. Pancreas: Unremarkable. No mass. No ductal dilation. Spleen: Unremarkable. No splenomegaly. Adrenals: Unremarkable. No mass. Kidneys and ureters: Probable 5 mm cyst in the upper pole of the left kidney, although too small to characterize. No hydronephrosis. Stomach and bowel: Wall thickening of the descending colon with associated pericolonic fat stranding, likely representing infectious versus inflammatory colitis. Mild colonic diverticulosis without definitive evidence of acute diverticulitis. No obstruction. PELVIS: Appendix: No findings to suggest acute appendicitis. Bladder: Underdistention and/or wall thickening of the urinary bladder raising concern for cystitis. Reproductive: A 1.8 cm hemorrhagic cyst is seen within the left ovary. Status post hysterectomy. Status post bilateral tubal ligation. ABDOMEN and PELVIS: Intraperitoneal space: Mild pelvic free fluid, likely physiologic and/or reactive. No free air. Bones/joints: No acute fracture. No dislocation. Soft tissues: Unremarkable. Vasculature: Unremarkable. No abdominal aortic aneurysm. Lymph nodes: Unremarkable. No enlarged lymph nodes. IMPRESSION: 1. Wall thickening of the descending colon with associated pericolonic fat stranding, likely representing infectious versus inflammatory colitis. 2. Mild colonic diverticulosis without definitive evidence of acute diverticulitis. 3. Underdistention and/or wall thickening of the urinary bladder raising concern for cystitis. Correlate with urinalysis. 4. A 1.8 cm hemorrhagic cyst within the left ovary. Mild pelvic free fluid, likely physiologic and/or reactive. Pelvic ultrasound may be obtained for further evaluation, if clinically indicated. 5. Hepatomegaly and/or Rudy's lobe with mild steatosis.
[2020-10-02] MEDS: SODIUM CHLORIDE 0.9% 1,000 ML IV SCH (06:47)
[2020-10-02] MEDS: ONDANSETRON 4 MG/2 ML VIAL IVP PRN ×3 (08:58→23:22)
[2020-10-02] MEDS: MORPHINE SULFATE 4 MG/ML SYRINGE IV PRN ×4 (08:58→23:22)
[2020-10-02] MEDS: PANTOPRAZOLE 40 MG/10 ML VIAL IV SCH ×2 (08:58→21:47)
[2020-10-02] MEDS ORDERED: atenoloL 25 MG TAB PO SCH (09:00)
[2020-10-02 12:39] LABS: Basophils # (A) 0.1 k/uL (0-0.2); Basophils % (A) 1 %; Eosinophils # (A) 0.1 k/uL (0-0.7); Eosinophils % (A) 2 %; HCT 41.6 % (34.0-46.0); Lymphocytes # (A) 1.8 k/uL (1.0-4.8); Lymphocytes % (A) 24 %; MCH 31.2 pg (25.0-35.0); MCHC 33.6 g/dL (31.0-37.0); MCV 92.8 fL (80.0-100.0); Mean Platelet Volume 8.5; Monocytes # (A) 0.4 k/uL (0-1.0); Monocytes % (A) 6 %; Neutrophils % (A) 66 %; Platelet Count 224 k/uL (150-450); RBC 4.48 m/uL (3.80-5.40); RDW 12.5 % (11.5-15.5); WBC 7.6 k/uL (3.8-10.6)
[2020-10-02] MEDS ORDERED: metroNIDAZOLE 500 MG TAB PO SCH (13:00)
[2020-10-02] MEDS: LEVOFLOXACIN 500MG-D5W PMX 500 MG in DEXTROSE/WATER 1 100ML.BAG IVPB SCH (13:02)
[2020-10-02] MEDS: metroNIDAZOLE 500 MG TAB PO SCH ×2 (16:09→21:47)
--- NOTE | 2020-10-02 19:01 | CONS ---
CONSULTATION DATE OF DICTATION: 10/02/2020 REASON FOR CONSULTATION: Abdominal pain and rectal bleeding of days' duration. HISTORY OF PRESENT ILLNESS: The patient is a 40-year-old pleasant white female admitted to the hospital complaining of acute onset of severe lower abdominal pain that started yesterday morning. Following that she had multiple episodes of bright red blood per rectum; she had at least about 7 or 8 episodes and came into the emergency room and subsequently was admitted to the hospital for further evaluation. Her last episode of rectal bleeding was around midnight last night. She still continues to complain of abdominal pain, which is progressively improving. She did have a CT of the abdomen and pelvis done in the emergency room that showed thickening of the descending colon with associated pericolonic fat stranding suspicious for infectious colitis versus inflammatory colitis and also some diverticulosis noted. Also there was a 1.5 cm hemorrhagic cyst in the left ovary. She never had these symptoms in the past. She reports no recent travel history. No recent antibiotic use. No one in the family has similar symptoms. She denies any fever, chills or night sweats. PAST MEDICAL HISTORY: Significant for hypertension, gastroesophageal reflux disease, anxiety, depression, irritable bowel syndrome. MEDICATIONS: Medications at home include Lamictal, atenolol, Prilosec, Norvasc. ALLERGIES: PENICILLIN. SOCIAL HISTORY: No smoking. No alcohol use. FAMILY HISTORY: Unremarkable. REVIEW OF SYSTEMS: CARDIOPULMONARY: No chest pain or shortness of breath. GENITOURINARY: No dysuria or hematuria. MUSCULOSKELETAL: Unremarkable. SKIN: Unremarkable. ENDOCRINE: Unremarkable. PSYCHIATRIC: Unremarkable. NEUROLOGY: Unremarkable. ENT/VISION: Unremarkable. CONSTITUTIONAL: No recent weight loss. No fever, chills, night sweats. PAST SURGICAL HISTORY: Uterine ablation and hysterectomy. PHYSICAL EXAMINATION: She appears comfortable. No apparent distress. Vital signs are stable. Blood pressure 130/86, pulse rate 69 per minute, and afebrile. HEENT examination unremarkable. Conjunctivae pink. Sclerae anicteric. Oral cavity no lesions. NECK: No JVD or lymph node enlargement. CHEST: Clear to auscultation. HEART: Regular rate and rhythm. ABDOMEN: Soft. There was mild tenderness in the left lower quadrant area. Rest of the abdomen was benign. Bowel sounds are positive. No organomegaly. EXTREMITIES: No pedal edema. SKIN: No rashes. NEUROLOGIC: Alert and oriented x3. No focal deficits. LABS: WBC 11.6, hemoglobin 16.7, platelets 289. Basic metabolic panel is within normal limits. PT and INR within normal limits. Coronavirus PCR is negative. Today repeat hemoglobin is 14 g/dL. IMPRESSION: 1. This is a lady who presented with acute onset of lower abdominal pain associated with multiple episodes of bright red blood per rectum that started yesterday morning. She had several episodes all through the day and her last episode was about [address] of the abdomen showed thickening of the descending colon consistent with acute colitis, possibly infectious versus inflammatory bowel disease. The clinical presentation is more consistent with acute ischemic colitis, but possibility of infectious colitis also needs to be considered. The patient is clinically and hemodynamically stable. She was started on empiric antibiotics with Levaquin and Flagyl yesterday. 2. History of hypertension. 3. History of gastroesophageal reflux disease. 4. History of irritable bowel syndrome. RECOMMENDATIONS: 1. Continue with empiric antibiotics. 2. Start her on clear liquid diet and advance as tolerated tomorrow. 3. No plans for any endoscopic intervention at the present time. 4. Repeat CBC in the morning. We will follow with you. Closely thank you for this consultation. MMODL / IJN: [id number] /
--- NOTE | 2020-10-02 21:02 | P.HPIM ---
History of Present Illness H&P Date: 10/02/20 Chief Complaint: abdominal pain Diana Turk is a 40 yo F with hx HTN who presented to the ED complaining of worsening abdominal pain and rectal bleeding. She states that over the past 2 days she began to notice bilateral lower abdominal pain and has had multiple bloody bowel movements as well. She denies nausea or vomiting. Her pain worsened so she came to the hospital. On presentation she was hypertensive, WBC 11.6k, CT abd/pelvis with pericolonic fat stranding and wall thickening suggestive of colitis. Review of Systems All systems: negative Constitutional: Reports malaise, Reports weakness, Denies chills, Denies fever Eyes: denies blurred vision, denies pain Ears, nose, mouth and throat: Denies headache, Denies sore throat Cardiovascular: Denies chest pain, Denies shortness of breath Respiratory: Denies cough Gastrointestinal: Reports abdominal pain, Reports diarrhea, Reports hematochezia, Denies nausea, Denies vomiting Genitourinary: Denies dysuria, Denies hematuria Musculoskeletal: Denies myalgias Integumentary: Denies pruritus, Denies rash Neurological: Denies numbness, Denies weakness Psychiatric: Denies anxiety, Denies depression Endocrine: Denies fatigue, Denies weight change Past Medical History Past Medical History: GERD/Reflux, Hypertension Additional Past Medical History / Comment(s): nacrolepsy, anxiety History of Any Multi-Drug Resistant Organisms: None Reported Past Surgical History: Ablation, Hysterectomy Additional Past Surgical History / Comment(s): breast augmentation, uterine ablation Past Anesthesia/Blood Transfusion Reactions: No Reported Reaction Past Psychological History: Anxiety, Panic Disorder Smoking Status: Former smoker Past Alcohol Use History: Occasional Past Drug Use History: None Reported Medications and Allergies Home Medications Medication Instructions Recorded Confirmed Type Dextroamphetamine/Amphetamine 20 mg PO PC-LUNCH 10/11/19 10/02/20 History [Dextroamp-Amphetamin 20 mg Tab] Dextroamphetamine/Amphetamine 30 mg PO QAM 10/11/19 10/02/20 History [Dextroamp-Amphetamin 20 mg Tab] amLODIPine [Norvasc] 10 mg PO HS 10/11/19 10/02/20 History lamoTRIgine [LaMICtal] 200 mg PO HS 10/11/19 10/02/20 History Omeprazole [PriLOSEC] 20 mg PO DAILY 10/02/20 10/02/20 History atenoloL [Atenolol] 25 mg PO DAILY 10/02/20 10/02/20 History Allergies Allergy/AdvReac Type Severity Reaction Status Date / Time Penicillins Allergy Rash/Hives Verified 10/02/20 07:24 Physical Exam Vitals: Vital Signs Temp Pulse Pulse Resp BP BP Pulse Ox 10/02/20 20:38 98.1 F 64 18 127/73 98 10/02/20 12:07 98.7 F 69 17 124/74 99 10/02/20 07:45 97.9 F 61 17 138/82 98 10/02/20 06:21 58 L 18 134/89 99 10/02/20 03:13 98.7 F 88 20 155/100 99 Intake and Output 10/02/20 10/02/20 10/02/20 06:59 14:59 22:59 Intake Total 2620 Balance 2620 Intake: Intake, IV Titration 1200 Amount Levofloxacin 500Mg-D5w 100 Pmx 500 mg In Dextrose/ Water 1 100ml.bag @ 100 mls/hr IVPB Q24H [facility] Rx#: [id number] Sodium Chloride 0.9% 1, 1100 000 ml @ 100 mls/hr IV . Q10H [facility] Rx#:[id number] Oral 1420 Other: Voiding Method Toilet # Voids 3 Weight 68.039 kg 68.039 kg General: well nourished, well developed, NAD. Vitals reviewed Eyes: PERRL, EOMI, conjunctiva normal HENT: normocephalic, mucus membranes moist Neck: supple, no JVD Lungs: normal respiratory effort, no wheezes or rales CV: Regular rate and rhythm, no murmur. Peripheral pulses 2+ Abdomen: soft, nondistended, no organomegaly. Tenderness to palpation LLQ Lymph: no cervical or axillary LAD Skin: warm and dry. Neuro: A&Ox3, normal mood and affect Results CBC & Chem 7: 10/02/20 12:20 10/02/20 03:31 Labs: Abnormal Lab Results - Last 24 Hours (Table) 10/02/20 10/02/20 Range/Units 03:31 03:31 WBC 11.6 H (3.8-10.6) k/uL RBC 5.44 H (3.80-5.40) m/uL Hgb 16.7 H (11.4-16.0) gm/dL Hct 49.7 H (34.0-46.0) % Neutrophils # 9.0 H (1.3-7.7) k/uL Sodium 136 L (137-145) mmol/L ALT 38 H (4-34) U/L Total Protein 8.5 H (6.3-8.2) g/dL Albumin 5.1 H (3.5-5.0) g/dL Thrombosis Risk Factor Assmnt - Choose All That Apply Each Factor Represents 1 point: Medical pt on bed rest Other Risk Factors: No Other congenital or acquired thrombophilia - If yes, enter type in comment: No Thrombosis Risk Factor Assessment Total Risk Factor Score: 1 Thrombosis Risk Factor Assessment Level: Low Risk Assessment and Plan (1) Acute colitis Current Visit: Yes Status: Acute Code(s): K52.9 - NONINFECTIVE GASTROENTERITIS AND COLITIS, UNSPECIFIED SNOMED Code(s): 49466623 (2) Essential hypertension Current Visit: Yes Status: Acute Code(s): I10 - ESSENTIAL (PRIMARY) HYPERTENSION SNOMED Code(s): 90176346 Plan: 1. Rectal bleed, secondary to acute colitis. Admit and consult to GI. Start empiric antibiotics and IV protonix 2. Essential hypertension. continue atenolol 3. Major depression. Continue lamictal
[2020-10-02] MEDS: lamoTRIgine 100 MG TAB PO SCH (21:47)
[2020-10-02] MEDS: atenoloL 25 MG TAB PO SCH (21:47)
[2020-10-03] MEDS: SODIUM CHLORIDE 0.9% 1,000 ML IV SCH ×5 (06:58→23:58)
[2020-10-03] MEDS: metroNIDAZOLE 500 MG TAB PO SCH ×3 (08:24→21:06)
[2020-10-03] MEDS: PANTOPRAZOLE 40 MG/10 ML VIAL IV SCH ×2 (08:24→21:06)
[2020-10-03 10:35] LABS: HCT 41.5 % (34.0-46.0); HGB 13.5 gm/dL (11.4-16.0); MCH 30.4 pg (25.0-35.0); MCHC 32.6 g/dL (31.0-37.0); MCV 93.2 fL (80.0-100.0); Mean Platelet Volume 8.4; Platelet Count 245 k/uL (150-450); RBC 4.45 m/uL (3.80-5.40); RDW 12.7 % (11.5-15.5); WBC 6.2 k/uL (3.8-10.6)
--- NOTE | 2020-10-03 11:22 | P.PN ---
Subjective Progress Note Date: 10/03/20 Diana Turk is a 40 yo F with hx HTN who presented to the ED complaining of worsening abdominal pain and rectal bleeding. She states that over the past 2 days she began to notice bilateral lower abdominal pain and has had multiple bloody bowel movements as well. She denies nausea or vomiting. Her pain worsened so she came to the hospital. On presentation she was hypertensive, WBC 11.6k, CT abd/pelvis with pericolonic fat stranding and wall thickening suggestive of colitis. Maintained on IV fluid hydration, Protonix,empiric Levaquin and Flagyl IV. Tolerating clear liquid diet with no nausea or vomiting. Feeling hungry and requesting diet advancement. No bowel movement since Friday. Reports left localized flank pain radiating to back but significantly improved. Evaluated by GI with recommendations noted and appreciated. Afebrile, normal WBC. Objective - Vital Signs Vital signs: Vital Signs Temp 98.1 F 10/03/20 05:11 Pulse 56 L 10/03/20 05:46 Resp 16 10/03/20 05:46 BP 107/64 10/03/20 05:46 Pulse Ox 99 10/03/20 05:46 Intake & Output 10/02/20 10/03/20 10/03/20 18:59 06:59 18:59 Intake Total 2620 590 Balance 2620 590 Weight 68.039 kg Intake: Intake, IV Titration 1200 Amount Levofloxacin 500Mg-D5w 100 Pmx 500 mg In Dextrose/ Water 1 100ml.bag @ 100 mls/hr IVPB Q24H [facility] Rx#: [id number] Sodium Chloride 0.9% 1, 1100 000 ml @ 100 mls/hr IV . Q10H [facility] Rx#:[id number] Oral 1420 590 Other: Voiding Method Toilet Toilet Toilet # Voids 3 2 - Exam General: Sitting up in bed, NAD. Vitals reviewed Eyes: PERRL, EOMI, conjunctiva normal HENT: normocephalic, mucus membranes moist Neck: supple, no JVD Lungs: normal respiratory effort, no wheezes or rales CV: Regular rate and rhythm, no murmur. Peripheral pulses 2+ Abdomen: soft, nondistended, no organomegaly. Minimal Tenderness to palpation LLQ Skin: warm and dry. Neuro: A&Ox3, normal mood and affect - Labs CBC & Chem 7: 10/03/20 10:21 02 03:31 Assessment and Plan Assessment: Rectal bleeding secondary to acute colitis, possible acute ischemic colitis, possible infectious colitis Gastroesophageal reflux Disease Essential hypertension Major depression, on Lamictal Plan: Continue on current medication regime ,monitoring and symptomatic treatment. Maintain antibiotics, PPI. Evaluated by GI with no plans for endoscopy interventions at this time. Advance diet to full liquids at lunchtime, if tolerated, advance to Low fiber for dinner. Discharge planning in progress for the next 24-48 hours. The impression and plan of care has been dictated as directed. : I performed a history and examination of this patient, discussed the same with the dictator. I agree with the dictator's note ,documented as a scribe. Any additional findings or plans will be noted.
[2020-10-03] MEDS: LEVOFLOXACIN 500MG-D5W PMX 500 MG in DEXTROSE/WATER 1 100ML.BAG IVPB SCH (13:58)
[2020-10-03] MEDS: MORPHINE SULFATE 4 MG/ML SYRINGE IV PRN (14:01)
[2020-10-03] MEDS: ONDANSETRON 4 MG/2 ML VIAL IVP PRN (14:01)
--- NOTE | 2020-10-03 16:11 | P.PN ---
Subjective Progress Note Date: 10/03/20 Principal diagnosis: Rectal bleeding This is a 40 year old female patient who came into the hospital with one day of rectal bleeding with abdominal pain. She had several episodes before admission. CT of abdomen showed thickening of descending colon with pericolonic fat stranding consistent with acute colitis versus inflammatory bowel disease. Symptoms more consistent with infectious versus ischemic colitis. Patient remains hemodynamically stable, Hg 13.5. Today she states she had one episode of bright red blood per rectum with some low abdominal pain. She has minimal nausea with no vomiting. No fevers through the night. Her diet has been advanced. Objective - Vital Signs Vital signs: Vital Signs Temp 98.2 F 10/03/20 12:00 Pulse 58 L 10/03/20 12:00 Resp 16 10/03/20 12:00 BP 150/75 10/03/20 12:00 Pulse Ox 99 10/03/20 12:00 Intake & Output 10/02/20 10/03/20 10/03/20 18:59 06:59 18:59 Intake Total 2620 590 Balance 2620 590 Weight 68.039 kg Intake: Intake, IV Titration 1200 Amount Levofloxacin 500Mg-D5w 100 Pmx 500 mg In Dextrose/ Water 1 100ml.bag @ 100 mls/hr IVPB Q24H [facility] Rx#: [id number] Sodium Chloride 0.9% 1, 1100 000 ml @ 100 mls/hr IV . Q10H [facility] Rx#:[id number] Oral 1420 590 Other: Voiding Method Toilet Toilet Toilet # Voids 3 2 2 # Bowel Movements 1 - Exam Appears comfortable, is alert and appears in no acute distress. HEENT: Atraumatic, trachea midline, no oral lesions. Lungs : Clear to ausculation Heart: Regular rate and rhythm Abdomen: Soft, nontender, non distended with bowel sounds. Extremities: No pedal edema. Skin: No rashes. No jaundice. Neurologic: Alert and orientated. - Labs CBC & Chem 7: 10/03/20 10:21 10/02/20 03:31 Assessment and Plan Assessment: 1. Rectal bleeding with CT findings consistent with acute colitis. Likely dealing with infectious or ischemic colitis on antibiotics. Rectal bleeding improving as well as abdominal tenderness. 2. History of hypertsion 2. History of irritable bowel disease Plan: 1. Continue supportive care 2. Advance diet as tolerated 3. Repeat CBC in morning 4. Continue Levaquin and flagyl 5. Continue to monitor for GI bleed, if bleeding persists will consider colonoscopy otherwise recommend outpatient follow up Thank you for this consultation Dr. July Ortiz I agree with the dictator's note, documented as a scribe by Lin MARINELLIC
[2020-10-03] MEDS: atenoloL 25 MG TAB PO SCH (21:06)
[2020-10-03] MEDS: lamoTRIgine 100 MG TAB PO SCH (21:06)
[2020-10-04] MEDS: metroNIDAZOLE 500 MG TAB PO SCH ×3 (08:34→22:06)
[2020-10-04] MEDS: PANTOPRAZOLE 40 MG/10 ML VIAL IV SCH (08:34)
[2020-10-04] MEDS: ONDANSETRON 4 MG/2 ML VIAL IVP PRN (08:42)
[2020-10-04] MEDS: MORPHINE SULFATE 4 MG/ML SYRINGE IV PRN (10:23)
[2020-10-04] MEDS: SIMETHICONE 80 MG CHEWABLE PO SCH ×4 (10:24→22:05)
--- NOTE | 2020-10-04 13:05 | P.PN ---
Subjective Progress Note Date: 10/04/20 Principal diagnosis: Rectal bleeding This is a 40 year old female patient who came into the hospital with one day of rectal bleeding with abdominal pain. She had several episodes before admission. CT of abdomen showed thickening of descending colon with pericolonic fat stranding consistent with acute colitis versus inflammatory bowel disease. Symptoms more consistent with infectious versus ischemic colitis. Patient remains hemodynamically stable. Today she initially stated she had no bloody bowel movements, just small amount of pinkish red tinge with wiping. She states her abdominal pain and cramping is worse through the night and this morning. States she has some nausea, no vomiting. She is tolerating a regular diet. She continues on her IV antibiotics. Objective - Vital Signs Vital signs: Vital Signs Temp 98.6 F 10/04/20 10:10 Pulse 63 10/04/20 10:13 Resp 18 10/04/20 10:13 BP 108/63 10/04/20 10:10 Pulse Ox 99 10/04/20 10:10 Intake & Output 10/03/20 10/04/20 10/04/20 18:59 06:59 18:59 Intake Total 1000 1680 Balance 1000 1680 Intake: Intake, IV Titration 1200 Amount Sodium Chloride 0.9% 1, 1200 000 ml @ 100 mls/hr IV . Q10H [facility] Rx#:[id number] Oral 1000 480 Other: Voiding Method Toilet Toilet # Voids 3 3 # Bowel Movements 1 - Exam Appears comfortable, is alert and appears in no acute distress. HEENT: Atraumatic, trachea midline, no oral lesions. Lungs : Clear to ausculation Heart: Regular rate and rhythm Abdomen: Soft, low abdominal tenderness, non distended with bowel sounds. Extremities: No pedal edema. Skin: No rashes. No jaundice. Neurologic: Alert and orientated. - Labs CBC & Chem 7: 10/03/20 10:21 10/02/20 03:31 Labs: Microbiology - Last 24 Hours (Table) 10/03/20 10:20 Stool Culture - Preliminary Stool Assessment and Plan Assessment: 1. Rectal bleeding with CT findings consistent with acute colitis. Likely dealing with infectious or ischemic colitis on antibiotics. Patient with continued rectal bleeding and worsening abdominal pain. 2. History of hypertsion 2. History of irritable bowel disease Plan: 1. Continue supportive care 2. Clear liquid diet for dinner, nothing by mouth after midnight 3. Repeat CBC in morning 4. Continue Levaquin and flagyl 5. PAtient is scheduled for colonoscopy tomorrow, risks and benefits discussed with patient, patient is agreeable to plan of care proceeding with colonoscopy. 6. Bowel prep this evening Thank you for this consultation Dr. July Ortiz I agree with the dictator's note, documented as a scribe by Lin MARINELLIC
[2020-10-04] MEDS: LEVOFLOXACIN 500MG-D5W PMX 500 MG in DEXTROSE/WATER 1 100ML.BAG IVPB SCH (14:37)
[2020-10-04] MEDS: SODIUM CHLORIDE 0.9% 1,000 ML IV SCH (14:38)
--- NOTE | 2020-10-04 16:26 | P.PN ---
Subjective Progress Note Date: 10/04/20 Diana Turk is a 40 yo F with hx HTN who presented to the ED complaining of worsening abdominal pain and rectal bleeding. She states that over the past 2 days she began to notice bilateral lower abdominal pain and has had multiple bloody bowel movements as well. She denies nausea or vomiting. Her pain worsened so she came to the hospital. On presentation she was hypertensive, WBC 11.6k, CT abd/pelvis with pericolonic fat stranding and wall thickening suggestive of colitis. 10/03/2020 Maintained on IV fluid hydration, Protonix,empiric Levaquin and Flagyl IV. Tolerating clear liquid diet with no nausea or vomiting. Feeling hungry and requesting diet advancement. No bowel movement since Friday. Reports left localized flank pain radiating to back but significantly improved. Evaluated by GI with recommendations noted and appreciated. Afebrile, normal WBC. 10/04/2020 maintained on IV antibiotics .tolerated diet advancement bowel yesterday. This morning feels worse upon awakening prior to eating breakfast with increased cramping. Positive nausea and no vomiting. No bowel movement since yesterday morning. Has not required morphine since yesterday. Complains of left lower quadrant tenderness. Afebrile, normal WBC. Hemoglobin 13.5, platelets 245. Objective - Vital Signs Vital signs: Vital Signs Temp 98.0 F 10/04/20 13:20 Pulse 69 10/04/20 13:20 Resp 18 10/04/20 13:20 BP 131/76 10/04/20 13:20 Pulse Ox 97 10/04/20 13:20 Intake & Output 10/03/20 10/04/20 10/04/20 18:59 06:59 18:59 Intake Total 1000 1680 200 Balance 1000 1680 200 Intake: Intake, IV Titration 1200 Amount Sodium Chloride 0.9% 1, 1200 000 ml @ 100 mls/hr IV . Q10H [facility] Rx#:[id number] Oral 1000 480 200 Other: Voiding Method Toilet Toilet # Voids 3 3 # Bowel Movements 1 - Exam General: Sitting up in bed, NAD. Vitals reviewed Eyes: PERRL, EOMI, conjunctiva normal, no jaundice HENT: normocephalic, mucus membranes moist Neck: supple, no JVD Lungs: normal respiratory effort, no rhonchi, crackles or wheezes. CV: Regular rate and rhythm, no murmur. Peripheral pulses 2+, no edema Abdomen: soft, nondistended, mild left lower quadrant tenderness to palpation , positive bowel sounds Skin: warm and dry. Neuro: A&Ox3, normal mood and affect - Labs CBC & Chem 7: 10/03/20 10:21 10/02/20 03:31 Labs: Microbiology - Last 24 Hours (Table) 10/03/20 10:20 Stool Culture - Preliminary Stool Assessment and Plan Assessment: Rectal bleeding secondary to acute colitis, possible acute ischemic colitis, possible infectious colitis Gastroesophageal reflux Disease Essential hypertension Major depression, on Lamictal Plan: Continue on current medication regime ,monitoring and symptomatic treatmen t. Maintain antibiotics, PPI. Scheduled for colonoscopy tomorrow with GI. The impression and plan of care has been dictated as directed. : I performed a history and examination of this patient, discussed the same with the dictator. I agree with the dictator's note ,documented as a scribe. Any additional findings or plans will be noted.
[2020-10-04] MEDS ORDERED: PEG 3350-NA SULF,BICARB,CL/KCL 4,000 ML BOTTLE PO ONE (17:00)
[2020-10-04] MEDS: lamoTRIgine 100 MG TAB PO SCH (22:06)
[2020-10-04] MEDS: PANTOPRAZOLE 40 MG TABLET PO SCH (22:07)
[2020-10-04] MEDS: atenoloL 25 MG TAB PO SCH (22:24)
[2020-10-05] MEDS: MORPHINE SULFATE 4 MG/ML SYRINGE IV PRN ×4 (00:25→20:00)
[2020-10-05 05:15] VITALS: RESP 16
[2020-10-05] MEDS: SODIUM CHLORIDE 0.9% 1,000 ML IV SCH ×4 (05:20→23:43)
[2020-10-05] MEDS: ONDANSETRON 4 MG/2 ML VIAL IVP PRN ×2 (05:21→20:03)
[2020-10-05] MEDS: SIMETHICONE 80 MG CHEWABLE PO SCH ×4 (08:25→20:55)
[2020-10-05] MEDS: metroNIDAZOLE 500 MG TAB PO SCH ×3 (08:25→20:55)
[2020-10-05] MEDS: PANTOPRAZOLE 40 MG TABLET PO SCH ×2 (08:25→20:03)
[2020-10-05] MEDS ORDERED: MAGNESIUM CITRATE 296 ML BOTTLE PO ONE (09:05)
[2020-10-05 09:06] LABS: Basophils # (A) 0.04 X 10*3/uL (0.00-0.10); Basophils % (A) 0.5 %; Eosinophils # (A) 0.15 X 10*3/uL (0.04-0.35); Eosinophils % (A) 1.7 %; HCT 37.3 % (37.2-46.3); HGB 12.5 g/dL (12.0-15.0); Lymphocytes # (A) 2.36 X 10*3/uL (0.90-5.00); Lymphocytes % (A) 27.2 %; MCH 31.3 pg (27.0-32.0); MCHC 33.5 g/dL (32.0-37.0); MCV 93.3 fL (80.0-97.0); Monocytes # (A) 0.64 X 10*3/uL (0.20-1.00); Monocytes % (A) 7.4 %; Neutrophils # (A) 5.48 X 10*3/uL (1.80-7.70); Platelet Count 239 X 10*3/uL (140-440); RDW 12.3 % (11.5-14.5); WBC 8.69 X 10*3/uL (4.50-10.00)
[2020-10-05 10:37] LABS: African American GFR (CKD) 126.5 (60.0-200.0); Anion Gap 8.3 mmol/L (4.00-12.00); BUN/Creat Ratio 8.57 Ratio (12.00-20.00); Calcium 8.1 mg/dL (8.7-10.3); Carbon Dioxide 22.7 mmol/L (21.6-31.8); Non-African American GFR(CKD) 109.1 (60.0-200.0); Potassium 3.5 mmol/L (3.5-5.5)
[2020-10-05] MEDS ORDERED: IV FLUID CONTINUATION 1,000 ML IV ONE ×2 (11:18)
[2020-10-05] MEDS ORDERED: ONDANSETRON 4 MG/2 ML VIAL ONE (11:20)
[2020-10-05] MEDS ORDERED: PROPOFOL 10 MG/ML 20 ML VIAL IV ONE (11:20)
--- NOTE | 2020-10-05 11:47 | P.PCN ---
Date of Procedure: 10/05/20 Procedure(s) Performed: BRIEF HISTORY: Patient is a 40-year-old pleasant white female admitted hospital with lower abdominal pain and rectal bleeding for the last 5 days duration. CAT scan showed thickening of the descending colon polyps with acute colitis. She started having antibiotics for possible infectious colitis versus ischemic colitis. Patient continues remains symptomatic with ongoing abdominal pain and rectal bleeding on a daily basis with no significant drop in hemoglobin. His and scheduled for colonoscopy to evaluate further PROCEDURE PERFORMED: Colonoscopy with biopsy and snare polypectomy . PREOPERATIVE DIAGNOSIS: lower abdominal pain and rectal bleeding or 5 days to. IV sedation per Anesthesia. PROCEDURE: After informed consent was obtained, the patient, was brought into the endoscopy unit. IV sedation was administered by Anesthesia under continuous monitoring. Digital rectal examination was normal. Initially the Olympus CF-160 flexible video colonoscope was then inserted in the rectum, gradually advanced into the cecum without any difficulty. Careful examination was performed as the scope was gradually being withdrawn. Ileocecal valve and the appendiceal orifice were visualized and appeared normal. Prep was excellent. Mucosa of the cecum had 1 cm polyp removed by snare polypectomy. Rest of the ascending colon, transverse colon, appeared normal. In the descending colon there was a middle colitis from 35-40 cm from the anal verge with mild mucosal erythema but no erosions or ulcerations. Biopsies were done from this area. Rest of the sigmoid colon, and rectum appeared normal. scattered sigmoid diverticulosis seen. Retroflexion was performed in the rectum and no lesions were seen. The patient tolerated the procedure well. IMPRESSION: Mild segmental colitis involving the descending colon extending from 35-45 cm from the anal verge with mild mucosal erythema consistent with ischemic versus infectious colitis . 1 cm cecal polyp status post polypectomy Scattered sigmoid diverticulosis RECOMMENDATIONS: Findings of this examination were discussed with the patient as well as her family. She was advised to follow with the biopsy results. Continue with antibiotics. Her diet will be advanced as tolerated and she can be discharged home today with outpatient follow-up in one week..
--- NOTE | 2020-10-05 13:55 | P.DS ---
Providers Date of admission: 10/05/20 07:58 Expected date of discharge: 10/05/20 Attending physician: Martínez Silverio MD Consults: 10/02/20 06:32 Consult Physician Routine Consulting Provider: Yumiko Ortiz Consult Reason/Comments: known Do you want consulting provider notified?: Yes Primary care physician: [facility] Hospital Course: Final Diagnoses: Rectal bleeding secondary to acute colitis, possible acute ischemic colitis, possible infectious colitis. Status post colonoscopy with polypectomy. Gastroesophageal reflux Disease Essential hypertension Major depression, on [facility] Hospital course:Diana Turk is a 40 yo F with hx HTN who presented to the ED complaining of worsening abdominal pain and rectal bleeding. She states that over the past 2 days she began to notice bilateral lower abdominal pain and has had multiple bloody bowel movements as well. She denies nausea or vomiting. Her pain worsened so she came to the hospital. On presentation she was hypertensive, WBC 11.6k, CT abd/pelvis with pericolonic fat stranding and wall thickening suggestive of colitis. 10/03/2020 Maintained on IV fluid hydration, Protonix,empiric Levaquin and Flagy l IV. Tolerating clear liquid diet with no nausea or vomiting. Feeling hungry and requesting diet advancement. No bowel movement since Friday. Reports left localized flank pain radiating to back but significantly improved. Evaluated by GI with recommendations noted and appreciated. Afebrile, normal WBC. 10/04/2020 maintained on IV antibiotics .tolerated diet advancement bowel yesterday. This morning feels worse upon awakening prior to eating breakfast with increased cramping. Positive nausea and no vomiting. No bowel movement since yesterday morning. Has not required morphine since yesterday. Complains of left lower quadrant tenderness. Afebrile, normal WBC. Hemoglobin 13.5, platelets 245. Status post colonoscopy reportedly mild side mental colitis involving descending colon with mild mucosal erythema consistent with ischemic versus infectious colitis, 1 cm cecal polyp status post polypectomy and scattered sigmoid diverticulosis. Cleared by GI for discharge, pending, diet advancement tolerated. DC antibiotics as per GI. Patient will be discharged home today in a stable condition with guarded prognosis. The impression and plan of care has been dictated as directed. : I performed a history and examination of this patient, discussed the same with the dictator. I agree with the dictator's note ,documented as a scribe. Any additional findings or plans will be noted. Patient Condition at Discharge: Stable Plan - Discharge Summary Discharge Rx Participant: No New Discharge Prescriptions: Continue lamoTRIgine [LaMICtal] 200 mg PO HS amLODIPine [Norvasc] 10 mg PO HS Dextroamphetamine/Amphetamine [Dextroamp-Amphetamin 20 mg Tab] 30 mg PO QAM Dextroamphetamine/Amphetamine [Dextroamp-Amphetamin 20 mg Tab] 20 mg PO PC- LUNCH atenoloL [Atenolol] 25 mg PO DAILY Omeprazole [PriLOSEC] 20 mg PO DAILY Discharge Medication List Dextroamphetamine/Amphetamine [Dextroamp-Amphetamin 20 mg Tab] 20 mg PO PC-LUNCH 10/11/19 [History] Dextroamphetamine/Amphetamine [Dextroamp-Amphetamin 20 mg Tab] 30 mg PO QAM 10/11/19 [History] amLODIPine [Norvasc] 10 mg PO HS 10/11/19 [History] lamoTRIgine [LaMICtal] 200 mg PO HS 10/11/19 [History] Omeprazole [PriLOSEC] 20 mg PO DAILY 10/02/20 [History] atenoloL [Atenolol] 25 mg PO DAILY 10/02/20 [History] Follow up Appointment(s)/Referral(s): Deyanira Silverman PAC [REFERRING] - 1 Week (call for follow up appt) Martínez Silverio MD [STAFF PHYSICIAN] - 10/12/20 10:00 am (patient will be seen in [facility]) Yumiko Ortiz MD [STAFF PHYSICIAN] - 1 Week Patient Instructions/Handouts: Diverticulosis (DC), Diverticulosis Diet (GEN), Colitis (ED), Colonoscopy (DC) Activity/Diet/Wound Care/Special Instructions: diverticulosis diet activity as tolerated
[2020-10-05] MEDS ORDERED: LEVOFLOXACIN 500 MG TAB PO SCH (14:00)
[2020-10-05] MEDS ORDERED: HYDROmorphone 1 MG/ML 1 ML SYRINGE IVP PRN (17:13)
[2020-10-05] MEDS: lamoTRIgine 100 MG TAB PO SCH (20:03)
[2020-10-05] MEDS: atenoloL 25 MG TAB PO SCH (20:03)
[2020-10-06] MEDS: ONDANSETRON 4 MG/2 ML VIAL IVP PRN (04:05)
[2020-10-06] MEDS: MORPHINE SULFATE 4 MG/ML SYRINGE IV PRN (04:06)
[2020-10-06 04:42] VITALS: BP 102/62; PULSE 66; TEMP 98.3
[2020-10-06] MEDS: SIMETHICONE 80 MG CHEWABLE PO SCH (08:27)
[2020-10-06] MEDS: metroNIDAZOLE 500 MG TAB PO SCH (08:28)
[2020-10-06] MEDS: PANTOPRAZOLE 40 MG TABLET PO SCH (08:28)
== END 2020-10-06 10:55 | disposition home or self-care (01) ==
LOC: EC 03:08 → 5NMEDONC 06:31 → OBSVTOIN 10-05 07:58 → INTOOBSV 10-05 07:58 → UNDODISIN 10-06 10:55
PROVIDERS: ADMIT Family Medicine; ATTEND Family Medicine
DX: K52.9 Noninfective gastroenteritis and colitis, unspecified (principal); K57.30 Diverticulosis of large intestine without perforation or abscess without bleeding; D12.0 Benign neoplasm of cecum; F41.9 Anxiety disorder, unspecified; K21.9 Gastro-esophageal reflux disease without esophagitis; I10 Essential (primary) hypertension; F32.9 Major depressive disorder, single episode, unspecified; K62.5 Hemorrhage of anus and rectum; G47.419 Narcolepsy without cataplexy; Z90.710 Acquired absence of both cervix and uterus; N83.202 Unspecified ovarian cyst, left side; F41.0 Panic disorder [episodic paroxysmal anxiety]; Z79.899 Other long term (current) drug therapy; Z88.0 Allergy status to penicillin; Z87.891 Personal history of nicotine dependence; Z87.19 Personal history of other diseases of the digestive system; Z20.822 Contact with and (suspected) exposure to COVID-19
CPT/HCPCS: 96376 ×3; 96361 ×2; 96365; 96366 ×2; 96375; 99285; 36415; 86900; 86901; 88305; 80053; 80048; 83690; 83735; 84484; 85025 ×2; 85027; 85610; 85730; 86850; 87045; 87046; 87635; 74177; 45380; 45385; G0378 ×5; J2270 ×5; J2405 ×5; J1956 ×3; J1170; J2704; C9113 ×3; Q9967; 96374

== ENCOUNTER → 2020-11-01 | Outpatient (CLI) | payer BC, OTHER ==
--- NOTE | 2020-11-01 15:04 | CT ---
EXAMINATION TYPE: CT abdomen pelvis wo/w con DATE OF EXAM: 11/01/2020 HISTORY: LLQ pain x1 month. CT DLP: 736.6mGycm Automated Exposure Control for Dose Reduction was Utilized. CONTRAST: CT scan of the abdomen and pelvis is performed with oral and without and with IV Contrast, patient in jected with 100 mL of Isovue M300. COMPARISON: CT A/P dated 10/02/2020. FINDINGS: LUNG BASES: No significant abnormality is appreciated. LIVER/GB: Mild splenomegaly redemonstrated. PANCREAS: No significant abnormality is seen. SPLEEN: No significant abnormality is seen. ADRENALS: No significant abnormality is seen. KIDNEYS: Noncontrast images show no renal calculi bilaterally. There is symmetric cortical medullary uptake and excretion without hydronephrosis seen bilaterally. Tiny hypodense lesion left kidney poste rior medially image 18 series 11 too small to further characterize presumed benign. BOWEL: Ureteral contrast to the level of the splenic flexure making evaluation of distal bowel is sub optimal on this study. No suspicious small or large bowel dilatation. Normal contrast-filled appendix is noted. Persistent areas of mild wall thickening in the distal transverse colon. There is moderate wall thickening in the left colon redemonstrated which is poorly distended. Mild wall thickening in the sigmoid colon. A few scattered colonic diverticula. Degree of wall thickening improved from prior CT. No surrounding inflammatory change on current study. UTERUS/ADNEXA: Uterus surgically absent or atrophic in appearance. LYMPH NODES: No greater than 1cm abdominal or pelvic lymph nodes are appreciated. OSSEOUS STRUCTURES: No significant abnormality is seen. OTHER: No significant additional abnormality is seen. IMPRESSION: The findings are consistent with resolving distal colitis greatest involving the left col on, no new areas of abnormal inflammatory change identified.
== END ==
LOC: RADCTMAIN 12:40
PROVIDERS: ATTEND Internal Medicine Gastroenterology
DX: K52.9 Noninfective gastroenteritis and colitis, unspecified (principal)
CPT/HCPCS: 74178; Q9967 ×2

== ENCOUNTER → 2021-02-09 | Outpatient (CLI) | payer BC, OTHER ==
--- NOTE | 2021-02-09 09:33 | US ---
EXAMINATION TYPE: US renal artery duplex complet DATE OF EXAM: 02/09/2021 COMPARISON: US dated 10/12/2019 CLINICAL HISTORY: I10 hypertension. uncontrolled HTN. MEASUREMENTS: RENAL SIZE: Rt Kidney: 10.7 x 4.6 x 4.7 cm Lt Kidney: 11.9 x 6.2 x 5.8 cm RESISTANCE INDEX Right: 0.59 Left: 0.58 RA/AO RATIO (< 3.5 ) Right: 2.1 Left: 2.4 RA VELOCITY ( < 180 cm/s) Right: 167 Left: 192 Aorta and renals unremarkable other than a small cortical cyst measuring 0.9 x 0.7 x 0.7 cm. Mildly e levated left renal artery. Right renal artery appears tortuous and unable to follow in the mid sectio n. Suggest CTA to better evaluate. IMPRESSION: 1. Borderline elevated peak systolic velocity of the left renal artery with normal ratio. 2. Right renal artery is tortuous and not completely evaluated. If there is clinical concern, CT cynthia ogram could be obtained. 3. 0.9 cm anechoic lesion of the left kidney most likely represents a cyst.
== END | disposition home or self-care (01) ==
LOC: RADUSWWP 08:02
PROVIDERS: ATTEND Internal Medicine Interventional Cardiology
DX: I10 Essential (primary) hypertension (principal)
CPT/HCPCS: 36415; 82088; 82533; 83835; 83880; 93975

== ENCOUNTER → 2021-02-23 | Outpatient (CLI) | payer BC, OTHER ==
--- NOTE | 2021-02-27 08:46 | MM ---
Reason for exam: screening (asymptomatic). Last mammogram was performed 6 years ago. History: Silicone gel implants, August 17, 2012. Physical Findings: A clinical breast exam by your physician is recommended on an annual basis and results should be correlated with mammographic findings. MG Screening Mammo Implant/CAD Bilateral CC, MLO, and ID view(s) were taken. Prior study comparison: February 24, 2015, bilateral MG diagnostic mammo w CAD JAYNA. There are scattered fibroglandular densities. Bilateral retropectoral silicone implants obscure portions of the breasts and limit compression. ASSESSMENT: Benign, BI-RAD 2 RECOMMENDATION: Routine screening mammogram of both breasts in 1 year.
== END | disposition home or self-care (01) ==
LOC: RADMAMWWP 11:00
PROVIDERS: ATTEND Obstetrics & Gynecology
DX: Z12.31 Encounter for screening mammogram for malignant neoplasm of breast (principal)
CPT/HCPCS: 77067

== ENCOUNTER → 2021-02-28 | Outpatient (CLI) | payer BC, OTHER ==
--- NOTE | 2021-03-01 17:00 | ECHOF ---
Referral Reason:I51.7 Cardiomegaly MEASUREMENTS -------- HEIGHT: 165.1 cm WEIGHT: 63.5 kg BP: IVSd: 1.0 cm (0.6 - 1.1) LVIDd: 4.0 cm (3.9 - 5.3) LVPWd: 1.1 cm (0.6 - 1.1) EDV(Teich): 70 ml IVSs: 1.3 cm LVIDs: 2.4 cm LVPWs: 1.4 cm %IVS Thck: 34 % ESV(Teich): 19 ml EF(Teich): 73 % %FS: 41 % SV(Teich): 51 ml RVIDd: 2.1 cm (< 3.3) LALs A4C: 4.8 cm LAAs A4C: 15.1 cm LAESV A-L A4C: 41 ml LAESV MOD A4C: 38 ml LALs A2C: 5.6 cm LAAs A2C: 20.8 cm LAESV A-L A2C: 65 ml LAESV MOD A2C: 61 ml LAESV(A-L): 56 ml LAESV Index (A-L): 32.92 ml/m Ao Diam: 2.8 cm (2.0 - 3.7) AV Cusp: 2.1 cm (1.5 - 2.6) EPSS: 0.8 cm MV E Shai: 1.00 m/s MV DecT: 267 ms MV Dec L[place]: 3.7 m/s MV A Shai: 0.68 m/s MV E/A Ratio: 1.47 MV PHT: 78 ms LVOT Vmax: 0.84 m/s LVOT maxP.85 mmHg AV Vmax: 0.95 m/s AV maxP.62 mmHg TR Vmax: 2.12 m/s TR maxP.91 mmHg RAP: 5.00 mmHg RVSP: 22.91 mmHg MV EF SLOPE: 170.96 mm/s (70 - 150) MV EXCURSION: 20.38 mm (> 18.000) FINDINGS -------- Sinus rhythm. This was a technically adequate study. Pt. Has Breast inplants The left ventricular size is normal. Left ventricular wall thickness is normal. Overall left vent ricular systolic function is normal with, an EF between 55 - 60 %. The diastolic filling pattern is normal for the age of the patient 11.62. The right ventricle is normal in size. LA is midly dilated 29-33ml/m2. The right atrial size is normal. Interatrial and interventricular septum intact. There is no evidence of aortic regurgitation. There is no evidence of aortic stenosis. No mitral regurgitation. Mild tricuspid regurgitation present. There is no evidence of pulmonary hypertension. The right v entricular systolic pressure, as measured by Doppler, is 22.91mmHg. There is no pulmonic regurgitation present. The aortic root size is normal. Normal inferior vena cava with normal inspiratory collapse consistent with estimated right atrial pre ssure of 5 mmHg. There is no pericardial effusion. CONCLUSIONS -------- 1. The left ventricular size is normal. 2. Left ventricular wall thickness is normal. 3. Overall left ventricular systolic function is normal with, an EF between 55 - 60 %. 4. The diastolic filling pattern is normal for the age of the patient 11.62 5. LA is midly dilated 29-33ml/m2. 6. Mild tricuspid regurgitation present. SALES TEAM RECRUITER: Padmini Hannon RDCS
== END | disposition home or self-care (01) ==
LOC: RADECHMAIN 14:59
PROVIDERS: ATTEND Family Medicine
DX: I07.1 Rheumatic tricuspid insufficiency (principal)
CPT/HCPCS: 93306

== ENCOUNTER 2021-04-09 22:46 | Inpatient (IN) | payer BC, OTHER ==
[2021-04-09] MEDS ORDERED: SODIUM CHLORIDE 0.9% 1,000 ML IV STA (23:34)
[2021-04-09] MEDS ORDERED: LORazepam 2 MG/ML INJ IV STA (23:34)
--- NOTE | 2021-04-09 23:35 | ED ---
Seizure HPI - General Chief Complaint: Seizure Stated Complaint: poss seizure Time Seen by Provider: 04/09/21 23:34 Source: patient Mode of arrival: ambulatory Limitations: no limitations - Related Data Home Medications Medication Instructions Recorded Confirmed RX: Dextroamphetamine/Amphetamine 20 mg PO PC-LUNCH 10/11/19 10/02/20 [Dextroamp-Amphetamin 20 mg Tab] RX: Dextroamphetamine/Amphetamine 30 mg PO QAM 10/11/19 10/02/20 [Dextroamp-Amphetamin 20 mg Tab] RX: amLODIPine [Norvasc] 10 mg PO HS 10/11/19 10/02/20 RX: lamoTRIgine [LaMICtal] 200 mg PO HS 10/11/19 10/02/20 RX: Omeprazole [PriLOSEC] 20 mg PO DAILY 10/02/20 10/02/20 RX: atenoloL 25 mg PO DAILY 10/02/20 10/02/20 Previous Rx's Medication Instructions Recorded RX: Levofloxacin [Levaquin] 500 mg PO 1400 #5 tab 10/05/20 RX: metroNIDAZOLE [Flagyl] 500 mg PO TID 5 Days #15 tab 10/05/20 Allergies Allergy/AdvReac Type Severity Reaction Status Date / Time Penicillins Allergy Rash/Hives Verified 04/09/21 22:57 Review of Systems ROS Statement: Those systems with pertinent positive or pertinent negative responses have been documented in the HPI. ROS Other: All systems not noted in ROS Statement are negative. Past Medical History Past Medical History: GERD/Reflux, Hypertension Additional Past Medical History / Comment(s): nacrolepsy, anxiety History of Any Multi-Drug Resistant Organisms: None Reported Past Surgical History: Ablation, Hysterectomy Additional Past Surgical History / Comment(s): breast augmentation, uterine ablation Past Anesthesia/Blood Transfusion Reactions: No Reported Reaction Past Psychological History: Anxiety, Panic Disorder Smoking Status: Former smoker Past Alcohol Use History: Occasional Past Drug Use History: None Reported General Exam Limitations: no limitations Course Vital Signs 04/09/21 04/10/21 22:57 00:45 Temperature 98.5 F Pulse Rate 71 73 Respiratory 18 18 Rate Blood Pressure 142/91 116/69 O2 Sat by Pulse 99 100 Oximetry Medical Decision Making - Lab Data Result diagrams: 04/09/21 00:01 04/09/21 00:01 Lab Results 0804/09/21 04/09/21 Range/Units 00:01 00:01 00:01 WBC 7.1 (3.8-10.6) k/uL RBC 4.57 (3.80-5.40) m/uL Hgb 14.8 (11.4-16.0) gm/dL Hct 42.7 (34.0-46.0) % MCV 93.4 (80.0-100.0) fL MCH 32.4 (25.0-35.0) pg MCHC 34.7 (31.0-37.0) g/dL RDW 13.2 (11.5-15.5) % Plt Count 263 (150-450) k/uL MPV 8.5 Neutrophils % 55 % Lymphocytes % 34 % Monocytes % 5 % Eosinophils % 2 % Basophils % 1 % Neutrophils # 3.9 (1.3-7.7) k/uL Lymphocytes # 2.4 (1.0-4.8) k/uL Monocytes # 0.4 (0-1.0) k/uL Eosinophils # 0.2 (0-0.7) k/uL Basophils # 0.1 (0-0.2) k/uL Sodium 139 (137-145) mmol/L Potassium 3.9 (3.5-5.1) mmol/L Chloride 106 (98-107) mmol/L Carbon Dioxide 25 (22-30) mmol/L Anion Gap 8 mmol/L BUN 12 (7-17) mg/dL Creatinine 0.75 (0.52-1.04) mg/dL Est GFR (CKD-EPI)AfAm >90 (>60 ml/min/1.73 sqM) Est GFR (CKD-EPI)NonAf >90 (>60 ml/min/1.73 sqM) Glucose 98 (74-99) mg/dL Calcium 9.0 (8.4-10.2) mg/dL Phosphorus 3.4 (2.5-4.5) mg/dL Magnesium 2.4 H (1.6-2.3) mg/dL Total Bilirubin 0.3 (0.2-1.3) mg/dL AST 24 (14-36) U/L ALT 20 (4-34) U/L Alkaline Phosphatase 52 (38-126) U/L Total Protein 7.4 (6.3-8.2) g/dL Albumin 4.6 (3.5-5.0) g/dL Lipase 61 (23-300) U/L Salicylates <1.0 mg/dL Urine Opiates Screen Not Detected (NotDetected) Ur Oxycodone Screen Not Detected (NotDetected) Urine Methadone Screen Not Detected (NotDetected) Ur Propoxyphene Screen Not Detected (NotDetected) Acetaminophen <10.0 ug/mL Ur Barbiturates Screen Not Detected (NotDetected) U Tricyclic Antidepress Not Detected (NotDetected) Ur Phencyclidine Scrn Not Detected (NotDetected) Ur Amphetamines Screen Detected H (NotDetected) U Methamphetamines Scrn Not Detected (NotDetected) U Benzodiazepines Scrn Not Detected (NotDetected) Urine Cocaine Screen Not Detected (NotDetected) U Marijuana (THC) Screen Not Detected (NotDetected) Serum Alcohol 130 mg/dL Disposition Clinical Impression: New onset seizure, Alcohol intoxication Disposition: ADMITTED IP TO THIS HOSP Condition: Good Instructions (If sedation given, give patient instructions): Seizure/Epilepsy Discharge Instructions & Follow-Up Is patient prescribed a controlled substance at d/c from ED?: No Referrals: Martínez Silverio MD [Primary Care Provider] - 1-2 days
--- NOTE | 2021-04-10 00:09 | CT ---
EXAMINATION TYPE: CT brain wo con DATE OF EXAM: 04/09/2021 COMPARISON: 10/11/2019 HISTORY: Seizure CT DLP: 1056.40 mGycm Automated exposure control for dose reduction was used. Ventricles have normal size. There is no mass effect nor midline shift. There is no sign of intracran ial hemorrhage. Calvarium is intact. There is normal aeration of the mastoid sinuses. Skull base is i ntact. IMPRESSION: Negative CT scan of the brain. No change.
[2021-04-10 00:14] LABS: Basophils # (A) 0.1 k/uL (0-0.2); Basophils % (A) 1 %; Eosinophils # (A) 0.2 k/uL (0-0.7); Eosinophils % (A) 2 %; HCT 42.7 % (34.0-46.0); HGB 14.8 gm/dL (11.4-16.0); Lymphocytes # (A) 2.4 k/uL (1.0-4.8); Lymphocytes % (A) 34 %; MCH 32.4 pg (25.0-35.0); MCHC 34.7 g/dL (31.0-37.0); MCV 93.4 fL (80.0-100.0); Mean Platelet Volume 8.5; Monocytes # (A) 0.4 k/uL (0-1.0); Monocytes % (A) 5 %; Neutrophils # (A) 3.9 k/uL (1.3-7.7); Neutrophils % (A) 55 %; Platelet Count 263 k/uL (150-450); RBC 4.57 m/uL (3.80-5.40); RDW 13.2 % (11.5-15.5); WBC 7.1 k/uL (3.8-10.6)
[2021-04-10 00:20] LABS: ALT 20 U/L (4-34); AST 24 U/L (14-36); African American GFR (CKD) >90 (>60 ml/min/1.73 sqM); Albumin 4.6 g/dL (3.5-5.0); Alkaline Phosphatase 52 U/L (38-126); Blood Urea Nitrogen 12 mg/dL (7-17); Carbon Dioxide 25 mmol/L (22-30); Glucose 98 mg/dL (74-99); Non-African American GFR(CKD) >90 (>60 ml/min/1.73 sqM); Total Bilirubin 0.3 mg/dL (0.2-1.3); Total Protein 7.4 g/dL (6.3-8.2)
[2021-04-10 00:22] LABS: Acetaminophen <10.0 ug/mL; Anion Gap 8 mmol/L; Chloride 106 mmol/L (98-107); Lipase 61 U/L (23-300); Magnesium 2.4 mg/dL (1.6-2.3); Phosphorus 3.4 mg/dL (2.5-4.5); Potassium 3.9 mmol/L (3.5-5.1); Salicylate <1.0 mg/dL; Sodium 139 mmol/L (137-145)
[2021-04-10 00:42] LABS: Alcohol 130 mg/dL
[2021-04-10 00:52] LABS: Amphetamine Screen,Urine Detected (NotDetected); Barbiturate Screen,Urine Not Detected (NotDetected); Benzodiazepines Screen,Urine Not Detected (NotDetected); Cocaine Screen,Urine Not Detected (NotDetected); Methadone Screen, Urine Not Detected (NotDetected); Opiate Screen,Urine Not Detected (NotDetected); Oxycodone Screen, Urine Not Detected (NotDetected); Phencyclidine Screen,Urine Not Detected (NotDetected); Tricyclic Antidepressant,Urine Not Detected (NotDetected); Urn Cannabinoid Scrn Not Detected (NotDetected)
[2021-04-10] MEDS ORDERED: ONDANSETRON 4 MG/2 ML VIAL IVP PRN (01:03)
[2021-04-10] MEDS ORDERED: LORazepam 2 MG/ML INJ IV PRN ×2 (01:03)
[2021-04-10] MEDS ORDERED: THIAMINE 100 MG/ML 2 ML VIAL IM STA (01:03)
[2021-04-10] MEDS ORDERED: NALOXONE 0.4 MG/ML 1 ML VIAL IV PRN (01:03)
[2021-04-10] MEDS ORDERED: DEXTROSE 5%-0.45% NACL 1,000 ML IV SCH (01:15)
[2021-04-10] MEDS: SODIUM CHLORIDE 0.9% 1,000 ML IV SCH ×3 (02:02→16:57)
[2021-04-10] MEDS: ASPIRIN-ACET-CAFF 250-250-65MG 1 EACH TAB PO PRN ×3 (02:26→18:18)
[2021-04-10] MEDS: LORazepam 2 MG/ML INJ IV PRN (03:55)
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
--- NOTE | 2021-04-10 15:24 | CT ---
EXAMINATION TYPE: CT angio head neck DATE OF EXAM: 04/10/2021 COMPARISON: None HISTORY: Seizure CT DLP: 322 mGycm CONTRAST: Performed with IV Contrast, patient injected with 65 mL of Isovue 370. Combination Contrast CTA cervical carotids and [place] CTA cervical carotids with 3-D recons truction Contrast CTA of the cervical carotids was performed 3-D reconstruction imaging obtained at a separate workstation. Right carotid system: No significant plaque is seen of the right common carotid artery. There is No significant plaque also noted at the carotid bulb and proximal ICA. No significant diameter reductio n. ECA is patent. Right vertebral artery appears unremarkable. Left carotid system: No significant plaque is seen of the left common carotid artery. There is No si gnificant plaque also noted at the carotid bulb and proximal ICA. No significant diameter reduction. ECA is patent. Left vertebral artery appears unremarkable. IMPRESSION: 1. No significant diameter reduction to account for the patient's symptoms. CTA [place] with 3-D reconstruction Contrast CTA of the [place] was performed 3-D reconstruction imaging obtained at a separate workstation. Vertebrobasilar system as well as intracranial portions of the internal carotid arteries and their ma tyson tributaries are patent. I do not see evidence for sizable aneurysm or vascular malformation. Pl ease note MRI provides greater sensitivity and specificity. Visualized brain appears grossly unremar kable. IMPRESSION: 1. No siginificant abnormality. NASCET criteria was used in interpretation of this exam?
[2021-04-10] MEDS: THIAMINE 100 MG TAB PO SCH (16:58)
[2021-04-10] MEDS: PANTOPRAZOLE 40 MG TABLET PO SCH (20:55)
[2021-04-10] MEDS: amLODIPine 10 MG TAB PO SCH (20:55)
[2021-04-10] MEDS: lamoTRIgine 100 MG TAB PO SCH (20:55)
--- NOTE | 2021-04-10 23:04 | P.HPIM ---
History of Present Illness H&P Date: 04/10/21 Chief Complaint: seizure Diana Turk is a 41 yo F with PMH of anxiety disorder, narcolepsy who presented to the ED with a seizure. She denies any previous history of same. Pt states that she had a very stressful day yesterday, drank wine and then called a friend for a ride. When she got into the car she had a brief witnessed grand mal seizure. She did not lose control of her bowel or bladder. On presentation pt hypertensive, labs unremarkable, CT head negative, blood alcohol level 130. Review of Systems All systems: negative Constitutional: Reports malaise, Denies chills, Denies fever Eyes: denies blurred vision, denies pain Ears, nose, mouth and throat: Denies headache, Denies sore throat Cardiovascular: Denies chest pain, Denies shortness of breath Respiratory: Denies cough Gastrointestinal: Denies abdominal pain, Denies diarrhea, Denies nausea, Denies vomiting Genitourinary: Denies dysuria, Denies hematuria Musculoskeletal: Denies myalgias Integumentary: Denies pruritus, Denies rash Neurological: Reports seizures, Denies numbness, Denies weakness Psychiatric: Denies anxiety, Denies depression Endocrine: Denies fatigue, Denies weight change Past Medical History Past Medical History: GERD/Reflux, Hypertension Additional Past Medical History / Comment(s): nacrolepsy, anxiety History of Any Multi-Drug Resistant Organisms: None Reported Past Surgical History: Ablation, Hysterectomy Additional Past Surgical History / Comment(s): breast augmentation, uterine ablation Past Anesthesia/Blood Transfusion Reactions: No Reported Reaction Past Psychological History: Anxiety, Panic Disorder Smoking Status: Former smoker Past Alcohol Use History: Occasional Past Drug Use History: None Reported - Past Family History Mother Family Medical History: Cancer, Hypertension Additional Family Medical History / Comment(s): "HEART DISORDER" Father Family Medical History: Cancer Medications and Allergies Home Medications Medication Instructions Recorded Confirmed Type Dextroamphetamine/Amphetamine 20 mg PO DAILY@1200 10/11/19 04/10/21 History [Dextroamp-Amphetamin 20 mg Tab] Dextroamphetamine/Amphetamine 30 mg PO DAILY 10/11/19 04/10/21 History [Dextroamp-Amphetamin 20 mg Tab] amLODIPine [Norvasc] 10 mg PO HS 10/11/19 04/10/21 History Omeprazole [PriLOSEC] 20 mg PO HS 10/02/20 04/10/21 History Atenolol [Tenormin] 100 mg PO HS 04/10/21 04/10/21 History Lamotrigine 300mg 300 mg PO HS 04/10/21 04/10/21 History Allergies Allergy/AdvReac Type Severity Reaction Status Date / Time Penicillins Allergy Rash/Hives Verified 04/10/21 07:43 Physical Exam Vitals: Vital Signs Temp Pulse Pulse Resp BP BP Pulse Ox 04/10/21 19:47 98.5 F 60 16 138/87 98 04/10/21 18:14 98.2 F 65 18 131/79 100 04/10/21 12:56 98.3 F 69 17 110/67 96 04/10/21 08:00 98.2 F 69 19 119/72 98 04/10/21 06:27 98.0 F 73 18 107/69 97 04/10/21 00:45 73 18 116/69 100 04/09/21 22:57 98.5 F 71 18 142/91 99 Intake and Output 04/10/21 04/10/21 04/10/21 06:59 14:59 22:59 Other: Weight 63.503 kg General: well nourished, well developed, NAD. Vitals reviewed Eyes: PERRL, EOMI, conjunctiva normal HENT: normocephalic, mucus membranes moist Neck: supple, no JVD Lungs: normal respiratory effort, no wheezes or rales CV: Regular rate and rhythm, no murmur. Peripheral pulses 2+ Abdomen: soft, nondistended, no organomegaly Lymph: no cervical or axillary LAD Skin: warm and dry. Neuro: A&Ox3, normal mood and affect Results CBC & Chem 7: 04/09/21 00:01 04/09/21 00:01 Labs: Abnormal Lab Results - Last 24 Hours (Table) 04/09/21 04/09/21 Range/Units 00:01 00:01 Magnesium 2.4 H (1.6-2.3) mg/dL Ur Amphetamines Screen Detected H (NotDetected) Thrombosis Risk Factor Assmnt - Choose All That Apply Any of the Below Risk Factors Present?: No Other Risk Factors: No Other congenital or acquired thrombophilia - If yes, enter type in comment: No Thrombosis Risk Factor Assessment Level: Very Low Risk Assessment and Plan Plan: 1. New onset seizure. Neurology consult, MRI brain ordered. Consider alcohol withdrawal seizure although pt denies frequent drinking. Continue to monitor 2. ARCENIO. continue lamictal 3. HTN. continue norvasc 4. Alcohol withdrawal. CIWA scale
[2021-04-10] MEDS: CYCLOBENZAPRINE 5 MG TAB PO PRN (23:56)
[2021-04-11] MEDS: SODIUM CHLORIDE 0.9% 1,000 ML IV SCH ×3 (05:57→15:51)
[2021-04-11] MEDS: THIAMINE 100 MG TAB PO SCH ×2 (08:42→15:51)
[2021-04-11 09:11] LABS: African American GFR (CKD) 132.1 (60.0-200.0); Albumin 3.8 g/dL (3.80-4.90); Albumin/Globulin Ratio 1.81 (1.60-3.17); Anion Gap 5.7 mmol/L (4.00-12.00); BUN/Creat Ratio 11.67 Ratio (12.00-20.00); Carbon Dioxide 20.3 mmol/L (21.6-31.8); Globulin 2.1 g/dL (1.6-3.3); Magnesium 1.9 mg/dL (1.5-2.4); Phosphorus 2.8 mg/dL (2.4-5.1); Potassium 3.7 mmol/L (3.5-5.5); Total Bilirubin 0.2 mg/dL (0.2-1.2); Total Protein 5.9 g/dL (6.2-8.2)
[2021-04-11 09:16] LABS: Basophils # (A) 0.04 X 10*3/uL (0.00-0.10); Basophils % (A) 0.6 %; Eosinophils # (A) 0.15 X 10*3/uL (0.04-0.35); Eosinophils % (A) 2.4 %; HGB 13.3 g/dL (12.0-15.0); Lymphocytes # (A) 1.97 X 10*3/uL (0.90-5.00); MCH 31.7 pg (27.0-32.0); MCHC 34.1 g/dL (32.0-37.0); MCV 92.9 fL (80.0-97.0); Monocytes # (A) 0.54 X 10*3/uL (0.20-1.00); Monocytes % (A) 8.8 %; Neutrophils # (A) 3.45 X 10*3/uL (1.80-7.70); Platelet Count 220 X 10*3/uL (140-440); RDW 12.7 % (11.5-14.5); WBC 6.16 X 10*3/uL (4.50-10.00)
[2021-04-11] MEDS ORDERED: methylPREDNISolone SOD SUCCI 125 MG/2 ML VIAL IV STA (11:53)
[2021-04-11] MEDS: HYDROcodone/APAP 5-325MG 1 EACH TAB PO PRN ×2 (12:04→20:36)
--- NOTE | 2021-04-11 15:13 | P.PN ---
Subjective Progress Note Date: 04/11/21 Diana Turk is a 41 yo F with PMH of anxiety disorder, narcolepsy who presented to the ED with a seizure. She denies any previous history of same. Pt states that she had a very stressful day yesterday, drank wine and then called a friend for a ride. When she got into the car she had a brief witnessed grand mal seizure. She did not lose control of her bowel or bladder. On presentation pt hypertensive, labs unremarkable, CT head negative, blood alcohol level 130. 04/11/2021 neuro workup in progress, scheduled for EEG, MRI. Reports she was up every hour on an hour secondary to her muscle spasm of her right shoulder into the neck, unrelieved by Flexeril. He reports mild headache, and fatigue. No seizure activity reported. Denies finger tingling. Denies chest pain, palpitations or shortness of breath. Objective - Vital Signs Vital signs: Vital Signs Temp 98.0 F 04/11/21 08:00 Pulse 68 04/11/21 08:00 Resp 16 04/11/21 08:00 BP 125/78 04/11/21 08:00 Pulse Ox 98 04/11/21 08:00 Intake & Output 04/10/21 04/11/21 04/11/21 18:59 06:59 18:59 Intake Total 1040 Balance 1040 Weight 63.503 kg Intake: Intake, IV Titration 1040 Amount Sodium Chloride 0.9% 1, 1040 000 ml @ 130 mls/hr IV . Q7H42M [facility] Rx#:[id number] - Exam General: Sitting up in bed, NAD. Vitals reviewed Eyes: PERRL, EOMI, conjunctiva normal HENT: normocephalic, mucus membranes moist Neck: supple, no JVD Lungs: normal respiratory effort, no wheezes or rales CV: Regular rate and rhythm, no murmur. Peripheral pulses 2+ Abdomen: soft, nondistended, no organomegaly, +BS Skin: warm and dry. Neuro: A&Ox3, normal mood and affect - Labs CBC & Chem 7: 04/11/21 06:41 04/11/21 06:41 Labs: Abnormal Lab Results - Last 24 Hours (Table) 04/11/21 Range/Units 06:41 Chloride 112 H (96-109) mmol/L Carbon Dioxide 20.3 L (21.6-31.8) mmol/L BUN 7.0 L (9.0-27.0) mg/dL BUN/Creatinine Ratio 11.67 L (12.00-20.00) Ratio Calcium 8.0 L (8.7-10.3) mg/dL Total Protein 5.9 L (6.2-8.2) g/dL Assessment and Plan Assessment: New-onset seizures, possible alcohol withdrawal seizures, ARCENIO HTN Alcohol withdrawal Narcolepsy Depression, anxiety Plan: Continue current medication regime ,monitoring incident current treatment. Neurology workup in progress. Maintain seizure precautions and CIWA protocol. Psychiatry recommendations pending. Steroid 80 mg IV 1 for her muscle spasm unrelieved by muscle relaxer. Cervical x-ray ordered. Alcohol cessation reinforced. The impression and plan of care has been dictated as directed. : I performed a history and examination of this patient, discussed the same with the dictator. I agree with the dictator's note ,documented as a scribe. Any additional findings or plans will be noted.
--- NOTE | 2021-04-11 15:28 | MR ---
MR brain without contrast HISTORY: New onset seizure, fall Multiplanar multisequence imaging through the brain, correlation CT brain 04/09/2021, MR brain 09/06/19 15 There is no restricted diffusion. Corpus callosum, pituitary, cervical medullary junction, cerebellop ontine angles are normal. There is no hemorrhage or hydrocephalus. There are expected vascular flow v oids. Orbits show symmetric appearance. Paranasal sinuses are well aerated. Minimal inflammatory dueñas ge present in the ethmoid air cells. IMPRESSION: No acute abnormality.
[2021-04-11] MEDS: LORazepam 2 MG/ML INJ IV PRN ×2 (15:52→22:03)
--- NOTE | 2021-04-11 16:30 | EEG ---
ELECTROENCEPHALOGRAM REPORT DATE OF SERVICE: 04/11/2021 PREAMBLE: This is a 41-year-old female with new-onset seizure. This study is performed to evaluate for any epileptiform activity. EEG FINDINGS: This is a 21-channel routine EEG recording in a patient utilizing 10/20 international system with referential and bipolar montages. Background consists of well developed, well regulated, moderate voltage activity in 9 hertz alpha. Background is posterior- dominant and reactive to eye opening and closing. Photic driving response was seen with some flash frequencies. Some drowsiness was seen with appearance of bilaterally symmetric theta frequency rhythm, but deeper stages of sleep were not seen. Hyperventilation revealed no abnormalities. No focal or generalized epileptiform activity was seen. IMPRESSION: This is a normal awake and drowsy EEG. No focal, lateralized or epileptiform activity was seen. MMODL / IJN: [id number] /
--- NOTE | 2021-04-11 16:31 | CT ---
EXAMINATION TYPE: CT angio abdomen pelvis DATE OF EXAM: 04/11/2021 COMPARISON: 11/01/2020 HISTORY: 41-year-old female renal artery stenosis, elevated BP TECHNIQUE: Contiguous axial scanning of the abdomen and pelvis following administration of 100 ml Iso anibal 370 IV contrast. Coronal/sagittal MIP reconstructions performed. 3-D reconstructions generated o n a dedicated independent workstation. CT DLP: 717 mGycm Automated exposure control for dose reduction was used. FINDINGS: Heart normal size without pericardial effusion. Lung bases clear without pleural effusion. Small hiatal hernia. Liver enlarged at 20.0 cm, possibly due to the presence of a Rudy's lobe. No biliary ductal dilatat ion. Artifact in the portal vein. Gallbladder, adrenal gland, right kidney, spleen with arterial phase mild enhancement, and pancreas w ithin normal limits. Tiny 7 mm medial cortical cyst left kidney. Extrarenal pelvis on the left. No dilated small bowel, free fluid, or free air. No mesenteric or retroperitoneal lymphadenopathy. Separate origin of the splenic artery directly from the aorta there also appears to be a separate luiza gin of the left gastric artery directly from the aorta. The SMA is patent. Left renal artery appears patent. There is nodular contour with irregular segmental narrowing throughout the mid to distal right renal artery, for example, refer to axial image 29 and coronal images 63 through 65. Hairston renal arteries are present on both sides. LEXUS is patent. The iliac vessels are patent. Normal appendix. [id number] stool burden. Left-sided colonic diverticulosis without any pericol onic inflammatory change. Bladder is urine distended. Uterus surgically absent. Both ovaries are visualized with tubal ligation clips. There is a peripherally enhancing cystic structure measuring 1.9 cm and the left ovary, eithe r corpus luteum or recently ruptured follicle. Mild cul-de-sac fluid likely physiologic. Bones: No osseous destructive process. IMPRESSION: 1. POSITIVE FINDINGS OF FMD INVOLVING THE MID TO DISTAL RIGHT RENAL ARTERY. THIS MAY BE CONTRIBUTING TO SYMPTOMATIC RENAL ARTERY STENOSIS. 2. SMALL HIATAL HERNIA, LEFT-SIDED CLONIC DIVERTICULOSIS, AND A 1.9 CM RECENTLY RUPTURED FOLLICLE OR CORPUS LUTEUM OF THE LEFT OVARY. MILD CUL-DE-SAC FREE FLUID LIKELY PHYSIOLOGIC. 3. NORMAL ANATOMIC VARIATION OF THE CELIAC AXIS WITH SEPARATE TAKEOFFS OF THE COMMON HEPATIC ARTERY, LEFT GASTRIC ARTERY, AND SPLENIC ARTERY DIRECTLY FROM THE AORTA.
--- NOTE | 2021-04-11 17:22 | XR ---
EXAMINATION TYPE: XR cervical spine comp, 6 views DATE OF EXAM: 04/11/2021 COMPARISON: None HISTORY: 41-year-old female right posterior shoulder blade pain radiating to the base of the skull. TECHNIQUE: 6 views FINDINGS: No predental space widening or prevertebral soft tissue swelling. Alignment is maintained. Disc inter spaces are preserved. There is rightward truncal shift noted. This may be positional or due to underl johann scoliosis. Clinically correlate. No significant bony neuroforaminal narrowing on either side. No rmal odontoid view. IMPRESSION: 1. Rightward truncal shift which may be positional or due to underlying scoliosis. Clinically correla te. 2. Otherwise, unremarkable radiograph of the cervical spine.
[2021-04-11] MEDS: lamoTRIgine 100 MG TAB PO SCH (20:34)
[2021-04-11] MEDS: amLODIPine 10 MG TAB PO SCH (20:34)
[2021-04-11] MEDS: PANTOPRAZOLE 40 MG TABLET PO SCH (20:34)
[2021-04-12] MEDS: SODIUM CHLORIDE 0.9% 1,000 ML IV SCH ×2 (00:41→08:00)
[2021-04-12 07:34] VITALS: BP 127/72; PULSE 79; RESP 16; TEMP 98.4
[2021-04-12] MEDS: THIAMINE 100 MG TAB PO SCH (08:00)
[2021-04-12] MEDS: HYDROcodone/APAP 5-325MG 1 EACH TAB PO PRN (08:05)
[2021-04-12] MEDS: CYCLOBENZAPRINE 5 MG TAB PO PRN (08:05)
--- NOTE | 2021-04-13 17:16 | P.DS ---
Providers Date of admission: 04/10/21 01:03 Expected date of discharge: 04/13/21 Attending physician: Martínez Silverio MD Consults: 04/10/21 01:04 Consult Physician Routine Consulting Provider: Yane Foster Consult Reason/Comments: sz Do you want consulting provider notified?: Yes Consult Physician Routine Consulting Provider: Bernardino Maynard Consult Reason/Comments: depression Do you want consulting provider notified?: Already Contacted Primary care physician: Martínez Silverio MD Hospital Course: Final Diagnoses: New-onset seizures, possible alcohol withdrawal seizures, ARCENIO HTN Alcohol withdrawal Narcolepsy Depression, anxiety Hospital course:Diana Turk is a 41 yo F with PMH of anxiety disorder, narcolepsy who presented to the ED with a seizure. She denies any previous history of same. Pt states that she had a very stressful day yesterday, drank wine and then called a friend for a ride. When she got into the car she had a brief witnessed grand mal seizure. She did not lose control of her bowel or bladder. On presentation pt hypertensive, labs unremarkable, CT head negative, blood alcohol level 130. 04/11/2021 neuro workup in progress, scheduled for EEG, MRI. Reports she was up every hour on an hour secondary to her muscle spasm of her right shoulder into the neck, unrelieved by Flexeril. He reports mild headache, and fatigue. No seizure activity reported. Denies finger tingling. Denies chest pain, palpitations or shortness of breath. Evaluated by psychiatry and neurology. Neuro workup completed.MRI of the brain, reported no acute abnormality.ENT reported no epileptiform activity.Reports difficulty sleeping, Seroquel added to med regimen. Significant clinical improvement. Patient has been cleared by the consults for discharge. Patient will be discharged home today in a stable condition with guarded prognosis. The impression and plan of care has been dictated as directed. : I performed a history and examination of this patient, discussed the same with the dictator. I agree with the dictator's note ,documented as a scribe. Any additional findings or plans will be noted. Patient Condition at Discharge: Stable Plan - Discharge Summary Discharge Rx Participant: Yes New Discharge Prescriptions: New Thiamine [Vitamin B-1] 100 mg PO DAILY #1 tab QUEtiapine [SEROquel] 25 mg PO HS #30 tab Continue amLODIPine [Norvasc] 10 mg PO HS Dextroamphetamine/Amphetamine [Dextroamp-Amphetamin 20 mg Tab] 30 mg PO DAILY Dextroamphetamine/Amphetamine [Dextroamp-Amphetamin 20 mg Tab] 20 mg PO DAILY@1200 Omeprazole [PriLOSEC] 20 mg PO HS Atenolol [Tenormin] 100 mg PO HS Lamotrigine 300mg 300 mg PO HS Discharge Medication List Dextroamphetamine/Amphetamine [Dextroamp-Amphetamin 20 mg Tab] 20 mg PO DAILY@1200 10/11/19 [History] Dextroamphetamine/Amphetamine [Dextroamp-Amphetamin 20 mg Tab] 30 mg PO DAILY 10/11/19 [History] amLODIPine [Norvasc] 10 mg PO HS 10/11/19 [History] Omeprazole [PriLOSEC] 20 mg PO HS 10/02/20 [History] Atenolol [Tenormin] 100 mg PO HS 04/10/21 [History] Lamotrigine 300mg 300 mg PO HS 04/10/21 [History] QUEtiapine [SEROquel] 25 mg PO HS #30 tab 04/12/21 [Rx] Thiamine [Vitamin B-1] 100 mg PO DAILY #1 tab 04/12/21 [Rx] Follow up Appointment(s)/Referral(s): Martínez Silverio MD [Primary Care Provider] - 04/16/21 9:45 am Patient Instructions/Handouts: Seizure/Epilepsy Discharge Instructions & Follow-Up Discharge Disposition: HOME SELF-CARE
== END 2021-04-12 13:51 | disposition home or self-care (01) | DRG 101 ==
LOC: EC 22:46 → 4SSUR 04-10 01:03
PROVIDERS: ADMIT Family Medicine; ATTEND Family Medicine
DX: R56.9 Unspecified convulsions (principal); F10.239 Alcohol dependence with withdrawal, unspecified; F10.229 Alcohol dependence with intoxication, unspecified; I10 Essential (primary) hypertension; K21.9 Gastro-esophageal reflux disease without esophagitis; F32.9 Major depressive disorder, single episode, unspecified; M62.838 Other muscle spasm; F41.0 Panic disorder [episodic paroxysmal anxiety]; G47.419 Narcolepsy without cataplexy; F41.9 Anxiety disorder, unspecified; Y90.6 Blood alcohol level of 120-199 mg/100 ml; Z90.710 Acquired absence of both cervix and uterus; Z88.0 Allergy status to penicillin; Z79.899 Other long term (current) drug therapy; Z87.891 Personal history of nicotine dependence; Z86.79 Personal history of other diseases of the circulatory system
CPT/HCPCS: 36415; 70450; 70496; 70498; 70551; 72050; 74174; 80053; 80143; 80179; 80306; 80320; 83690; 83735; 84100; 85025; 95816; 96360; 99285

== ENCOUNTER 2021-07-19 20:11 | Emergency (ER) | payer BC, OTHER ==
[2021-07-19 20:20] VITALS: TEMP 98.1
--- NOTE | 2021-07-19 20:56 | ED ---
General Adult HPI - General Chief complaint: Upper Respiratory Infection Stated complaint: Cough, Pneumonia Time Seen by Provider: 07/19/21 20:14 Source: EMS Mode of arrival: EMS Limitations: no limitations - History of Present Illness Initial comments: Dictation was produced using [employer] dictation software. please excuse any grammatical, word or spelling errors. Chief Complaint: 41-year-old female presents emergency department for cough, difficulty in breathing sore throat. History of Present Illness: 41-year-old female she denies any significant past medical history. Patient states about a month ago she had URI symptoms that resolved after antibiotic treatment. Over the last 9 days she is had recurrence of symptoms. Symptoms include cough, shortness of breath, headache and abnormal sensation in her upper anterior chest. Patient completed a course of antibiotics, steroids and Tessalon Perles. She called EMS because she had a coughing fit. Patient denies any constitutional symptoms. The ROS documented in this emergency department record has been reviewed and confirmed by me. Those systems with pertinent positive or negative responses have been documented in the HPI. All other systems are other negative and/or noncontributory. PHYSICAL EXAM: General Impression: Alert and oriented x3, not in acute distress HEENT: Normocephalic atraumatic, extra-ocular movements intact, pupils equal and reactive to light bilaterally, mucous membranes moist. Cardiovascular: Heart regular rate and rhythm Chest: Able to complete full sentences, no retractions, no tachypnea, clear to auscultation bilaterally Abdomen: abdomen soft, non-tender, non-distended, no organomegaly Musculoskeletal: Pulses present and equal in all extremities, no peripheral edema Motor: no focal deficits noted Neurological: CN II-XII grossly intact, no focal motor or sensory deficits noted Skin: Intact with no visualized rashes Psych: Normal affect and mood ED course: 41-year-old female presents to the emergency department with URI type symptoms for the last 9 days. Vital signs upon arrival are within acceptable limits. Patient is well-appearing. Laboratory evaluation obtained. Leukocytosis of 11.2. Patient did report receiving steroids recently. Metabolic panel shows mild acidosis. Otherwise within acceptable limits. Negative for carotid a virus and influenza. Chest x- ray is nonacute. Patient observed in emergency department for 2 hours 17 minutes. She is reevaluated at bedside at 10:30 PM found to be in stable medi claudia condition. Splinter no high-risk features. She is well-appearing at bedside. Patient is discharged advised follow-up with primary care doctor. Patient is currently on treatment for her respiratory issues including steroids and antibiotics and Tessalon Perles. Patient is agreeable for albuterol inhaler. [facility]. - Related Data Home Medications Medication Instructions Recorded Confirmed Dextroamphetamine/Amphetamine 20 mg PO DAILY@1200 10/11/19 07/19/21 [Dextroamp-Amphetamin 20 mg Tab] Dextroamphetamine/Amphetamine 30 mg PO DAILY 10/11/19 07/19/21 [Dextroamp-Amphetamin 20 mg Tab] Atenolol [Tenormin] 100 mg PO HS 04/10/21 07/19/21 Benzonatate [Tessalon Perles] 100 - 200 mg PO TID PRN 07/19/21 07/19/21 Cetirizine HCl 10 mg PO DAILY 07/19/21 07/19/21 Doxycycline Hyclate 100 mg PO BID 07/19/21 07/19/21 Omeprazole Magnesium [PriLOSEC OTC] 20 mg PO HS 07/19/21 07/19/21 QUEtiapine [SEROquel] 50 mg PO HS 07/19/21 07/19/21 Spironolactone [Aldactone] 25 mg PO DAILY 07/19/21 07/19/21 amLODIPine [Norvasc] 10 mg PO DAILY 07/19/21 07/19/21 lamoTRIgine [lamoTRIgine ER] 300 mg PO DAILY 07/19/21 07/19/21 methylPREDNISolone [Medrol Dose See Taper PO DIRECTED 07/19/21 07/19/21 Pack] Previous Rx's Medication Instructions Recorded Albuterol Sulfate [Proair Hfa] 1 - 2 puff INHALATION Q6HR PRN 07/19/21 #8.5 gm Allergies Allergy/AdvReac Type Severity Reaction Status Date / Time Penicillins Allergy Rash/Hives Verified 07/19/21 21:28 Review of Systems ROS Statement: Those systems with pertinent positive or pertinent negative responses have been documented in the HPI. ROS Other: All systems not noted in ROS Statement are negative. Past Medical History Past Medical History: GERD/Reflux, Hypertension Additional Past Medical History / Comment(s): nacrolepsy, anxiety History of Any Multi-Drug Resistant Organisms: None Reported Past Surgical History: Ablation, Hysterectomy Additional Past Surgical History / Comment(s): breast augmentation, uterine ablation Past Anesthesia/Blood Transfusion Reactions: No Reported Reaction Past Psychological History: Anxiety, Panic Disorder Smoking Status: Former smoker Past Alcohol Use History: Occasional Past Drug Use History: None Reported - Past Family History Mother Family Medical History: Cancer, Hypertension Additional Family Medical History / Comment(s): "HEART DISORDER" Father Family Medical History: Cancer General Exam Limitations: no limitations Course Vital Signs 07/19/21 20:13 Temperature 98.1 F Pulse Rate 95 Respiratory 20 Rate Blood Pressure 132/94 O2 Sat by Pulse 98 Oximetry Medical Decision Making - Lab Data Result diagrams: 07/19/21 20:34 07/19/21 20:34 Lab Results 07/19/21 07/19/21 07/19/21 Range/Units 20:34 20:34 20:34 WBC 11.2 H (3.8-10.6) k/uL RBC 4.64 (3.80-5.40) m/uL Hgb 14.7 (11.4-16.0) gm/dL Hct 43.4 (34.0-46.0) % MCV 93.5 (80.0-100.0) fL MCH 31.6 (25.0-35.0) pg MCHC 33.8 (31.0-37.0) g/dL RDW 13.4 (11.5-15.5) % Plt Count 395 (150-450) k/uL MPV 8.1 Neutrophils % 78 % Lymphocytes % 15 % Monocytes % 4 % Eosinophils % 0 % Basophils % 1 % Neutrophils # 8.8 H (1.3-7.7) k/uL Lymphocytes # 1.7 (1.0-4.8) k/uL Monocytes # 0.5 (0-1.0) k/uL Eosinophils # 0.1 (0-0.7) k/uL Basophils # 0.1 (0-0.2) k/uL Sodium 141 (137-145) mmol/L Potassium 3.6 (3.5-5.1) mmol/L Chloride 107 (98-107) mmol/L Carbon Dioxide 19 L (22-30) mmol/L Anion Gap 15 mmol/L BUN 19 H (7-17) mg/dL Creatinine 0.72 (0.52-1.04) mg/dL Est GFR (CKD-EPI)AfAm >90 (>60 ml/min/1.73 sqM) Est GFR (CKD-EPI)NonAf >90 (>60 ml/min/1.73 sqM) Glucose 105 H (74-99) mg/dL Calcium 9.1 (8.4-10.2) mg/dL Coronavirus (PCR) (Not Detectd) Influenza Type A RNA Not Detected (Not Detectd) Influenza Type B (PCR) Not Detected (Not Detectd) 07/19/21 Range/Units 20:34 WBC (3.8-10.6) k/uL RBC (3.80-5.40) m/uL Hgb (11.4-16.0) gm/dL Hct (34.0-46.0) % MCV (80.0-100.0) fL MCH (25.0-35.0) pg MCHC (31.0-37.0) g/dL RDW (11.5-15.5) % Plt Count (150-450) k/uL MPV Neutrophils % % Lymphocytes % % Monocytes % % Eosinophils % % Basophils % % Neutrophils # (1.3-7.7) k/uL Lymphocytes # (1.0-4.8) k/uL Monocytes # (0-1.0) k/uL Eosinophils # (0-0.7) k/uL Basophils # (0-0.2) k/uL Sodium (137-145) mmol/L Potassium (3.5-5.1) mmol/L Chloride (98-107) mmol/L Carbon Dioxide (22-30) mmol/L Anion Gap mmol/L BUN (7-17) mg/dL Creatinine (0.52-1.04) mg/dL Est GFR (CKD-EPI)AfAm (>60 ml/min/1.73 sqM) Est GFR (CKD-EPI)NonAf (>60 ml/min/1.73 sqM) Glucose (74-99) mg/dL Calcium (8.4-10.2) mg/dL Coronavirus (PCR) Not Detected (Not Detectd) Influenza Type A RNA (Not Detectd) Influenza Type B (PCR) (Not Detectd) Disposition Clinical Impression: Cough Disposition: HOME SELF-CARE Condition: Good Instructions (If sedation given, give patient instructions): Upper Respiratory Infection (ED) Prescriptions: Albuterol Sulfate [Proair Hfa] 1 - 2 puff INHALATION Q6HR PRN #8.5 gm PRN Reason: Dyspnea Is patient prescribed a controlled substance at d/c from ED?: No Referrals: Martínez Silverio MD [Primary Care Provider] - 1-2 days
[2021-07-19 21:21] LABS: African American GFR (CKD) >90 (>60 ml/min/1.73 sqM); Anion Gap 15 mmol/L; Basophils # (A) 0.1 k/uL (0-0.2); Basophils % (A) 1 %; Blood Urea Nitrogen 19 mg/dL (7-17); Calcium 9.1 mg/dL (8.4-10.2); Carbon Dioxide 19 mmol/L (22-30); Chloride 107 mmol/L (98-107); Eosinophils # (A) 0.1 k/uL (0-0.7); Eosinophils % (A) 0 %; Glucose 105 mg/dL (74-99); HCT 43.4 % (34.0-46.0); HGB 14.7 gm/dL (11.4-16.0); Lymphocytes # (A) 1.7 k/uL (1.0-4.8); Lymphocytes % (A) 15 %; MCH 31.6 pg (25.0-35.0); MCHC 33.8 g/dL (31.0-37.0); MCV 93.5 fL (80.0-100.0); Mean Platelet Volume 8.1; Monocytes # (A) 0.5 k/uL (0-1.0); Monocytes % (A) 4 %; Neutrophils # (A) 8.8 k/uL (1.3-7.7); Neutrophils % (A) 78 %; Non-African American GFR(CKD) >90 (>60 ml/min/1.73 sqM); Platelet Count 395 k/uL (150-450); Potassium 3.6 mmol/L (3.5-5.1); RBC 4.64 m/uL (3.80-5.40); RDW 13.4 % (11.5-15.5); Sodium 141 mmol/L (137-145); WBC 11.2 k/uL (3.8-10.6)
--- NOTE | 2021-07-19 22:24 | XR ---
EXAMINATION: XR chest 1V portable DATE AND TIME: 07/19/2021 8:55 PM CLINICAL INDICATION: PHH; cough TECHNIQUE: AP upright portable COMPARISON: 06/05/2020 radiograph FINDINGS: The overlying soft tissues are prominent, and the x-ray technique is relatively underpenetrated parth red to the comparison study. The lungs appear to be clear, and the pulmonary vascularity arborization pattern does not appear to b e silhouetted. The pleural spaces are negative. The cardiac silhouette is not enlarged. The remainder of the mediastinal silhouette is unremarkable. The skeletal structures and soft tissues are negative for acute findings. IMPRESSION: No definite acute radiographic process.
[2021-07-19] MEDS ORDERED: ACET/COD 300 MG/30 MG STARTER PACK 6 TAB BTL PO STA (22:42)
[2021-07-19 23:53] VITALS: BP 126/85; PULSE 88; RESP 18
== END 2021-07-19 22:49 | disposition home or self-care (01) ==
LOC: EC 20:11
DX: R05.9 Cough, unspecified (principal); Z20.822 Contact with and (suspected) exposure to COVID-19; Z88.0 Allergy status to penicillin; K21.9 Gastro-esophageal reflux disease without esophagitis; I10 Essential (primary) hypertension; Z90.710 Acquired absence of both cervix and uterus; F41.9 Anxiety disorder, unspecified; Z87.891 Personal history of nicotine dependence
CPT/HCPCS: 36415; 71045; 80048; 85025; 87502; 87635; 99285

== ENCOUNTER → 2021-09-18 | Outpatient (CLI) | payer BC, OTHER ==
[2021-09-18 18:20] LABS: HCT 43.4 % (37.2-46.3); HGB 13.8 g/dL (12.0-15.0); MCH 30.5 pg (27.0-32.0); MCHC 31.8 g/dL (32.0-37.0); Mean Platelet Volume 12.2 fL (9.5-12.2); Platelet Count 255 X 10*3/uL (140-440); RBC 4.52 X 10*6/uL (4.10-5.20); RDW 13.3 % (11.5-14.5); WBC 10.37 X 10*3/uL (4.50-10.00)
[2021-09-18 18:21] LABS: African American GFR (CKD) 125.6 (60.0-200.0); Blood Urea Nitrogen 14.7 mg/dL (9.0-27.0); Non-African American GFR(CKD) 108.4 (60.0-200.0); Potassium 3.9 mmol/L (3.5-5.5)
== END | disposition home or self-care (01) ==
LOC: LABPAT 12:15
PROVIDERS: ATTEND Internal Medicine Interventional Cardiology
DX: Z01.812 Encounter for preprocedural laboratory examination (principal); I10 Essential (primary) hypertension
CPT/HCPCS: 36415; 80051; 82565; 84520; 85027

== ENCOUNTER 2021-09-19 08:59 | Day surgery (SDC) | payer BC, OTHER ==
[2021-09-13 16:10] VITALS: BMI 25.0
[~2021-09-19 08:59] MED LIST: SODIUM CHLORIDE 0.9% 1,000 ML in EMPTY BAG 1 BAG IV ONE
[2021-09-19] MEDS ORDERED: HYDROmorphone 0.5 MG/0.5 ML SYRINGE IVP ONE (11:20)
[2021-09-19] MEDS ORDERED: LIDOCAINE 1% INJ 10MG/ML (20 ML MDV) SQ ONE (11:21)
[2021-09-19] MEDS ORDERED: MIDAZOLAM 2 MG/2 ML VIAL IV ONE (11:21)
[2021-09-19] MEDS: fentaNYL (PF) 50 MCG/ML 2 ML AMP IV ONE ×2 (12:22→12:41)
[2021-09-19] MEDS ORDERED: IOPAMIDOL-250 100ML BTL INTRAARTER ONE (12:41)
[2021-09-19] MEDS ORDERED: CLOPIDOGREL 75 MG TAB PO ONE (12:57)
[2021-09-19] MEDS ORDERED: NALOXONE 0.4 MG/ML 1 ML VIAL IVP PRN (13:11)
--- NOTE | 2021-09-19 13:14 | P.PCN ---
Date of Procedure: 09/19/21 Operative Findings: PERCUTANEOUS PERIPHERAL INTERVENTION Performing physician Tim Jordan M.D. Procedure performed #1 successful balloon angioplasty of the right renal artery using 5.0 x 30 mm balloon with an excellent angiographic results #2 intravascular ultrasound (IVUS) of the right renal artery #3 selective right renal artery angiogram #4 an abdominal aortogram #5 ultrasound guided access of the right common femoral artery Indication This is a 63-year-old female patient who sees Dr. Del Rio regularly who was a diagnosed recently with resistant hypertension. The patient was on 3 blood pressure medications including diuretics. She underwent a CTA of the abdominal aorta and that revealed evidence of fibromuscular dysplasia affecting the right renal artery. She was brought today for further clarification and possible GLAZE WIPER. Approach Right common femoral artery Complication None Level of sedation Moderate with a sedation length of 84 minutes Procedure description After obtaining an informed consent the patient was brought to the cardiac biological lab technician. The right common femoral artery was cannulated using puncture technique under ultrasound guidance, the micropuncture wire passed easily then I placed a 5- Grenadian sheath in the right common femoral artery. Subsequently the 5-Grenadian sh eath was upgraded into 6-Grenadian sheath during the procedure. Subsequently I did an abdominal aortogram using 5-Grenadian pigtail catheter which was placed in the abdominal aorta and that was performed using a power injection under digital subselection. After that I did selective right renal artery using renal double curved catheter and that was a 6-Grenadian catheter. To do that I had to. My 5-Grenadian sheath into 6-Grenadian sheath. Anticoagulation at that point was initiated using heparin with continuous ACT monitoring throughout the procedure After that I did selective right renal artery angiogram which revealed evidence off FMD of the right renal artery. To assess if the lesion isn't flow-limiting or no I did wire it using an 014 wire and I did after that intravascular ultrasound and that revealed 2 spots of high-grade stenosis exceeding 80%. Because of that I decided to do balloon angioplasty. I performed and balloon angioplasty lesion using 4.5 mm and subsequently 5.5 mm. The final angiogram showed excellent angiographic results and the procedure was completed without any complications By the end I did selective right common femoral artery angiogram before I deployed a 1. Close to achieve good hemostasis. The procedure was completed without any complications Postprocedure management #1 dual antiplatelet therapy #2 aggressive cholesterol control #3 continue monitoring the blood pressure and assess the need to drop any of the blood pressure medication #4 follow-up with Dr. Del Rio as an outpatient
[2021-09-19] MEDS ORDERED: SODIUM CHLORIDE 0.9% 1,000 ML in EMPTY BAG 1 BAG IV SCH (13:15)
--- NOTE | 2021-09-19 13:56 | IR ---
Fluoroscopy HISTORY: Fibromuscular dysplasia 13.5 minutes fluoroscopy time supplied to the referring clinician. 398 intraoperative C-arm images d ocument the procedure. See dictated report from cardiology.
[2021-09-19] MEDS: ACETAMINOPHEN TAB 325 MG TAB PO PRN ×2 (14:42→19:40)
[2021-09-19] MEDS: PREGABALIN 50 MG CAP PO SCH ×2 (17:09→19:41)
[2021-09-19] MEDS ORDERED: NON FORMULARY DRUG (Dextroamphetamine/Amphetamine [Dextroamp-Amphetamin 20 Mg Tab] 20 MG T PO SCH (17:30)
[2021-09-19] MEDS: LABETALOL 200 MG TAB PO SCH (19:42)
[2021-09-19] MEDS ORDERED: PANTOPRAZOLE 40 MG TABLET PO SCH (21:00)
[2021-09-19] MEDS ORDERED: QUEtiapine 100 MG TAB PO SCH (21:00)
[2021-09-19 22:51] VITALS: RESP 16
[2021-09-20 07:53] VITALS: BP 112/62; PULSE 56; TEMP 97.9
[2021-09-20] MEDS ORDERED: amLODIPine 10 MG TAB PO SCH (09:00)
[2021-09-20] MEDS ORDERED: ASPIRIN 325 MG TAB PO SCH (09:00)
[2021-09-20] MEDS ORDERED: NON FORMULARY DRUG (Dextroamphetamine/Amphetamine [Dextroamp-Amphetamin 20 Mg Tab] 20 MG T PO SCH (09:00)
[2021-09-20] MEDS ORDERED: lamoTRIgine 100 MG TAB PO SCH (09:00)
[2021-09-20] MEDS ORDERED: CLOPIDOGREL 75 MG TAB PO SCH (09:00)
[2021-09-20] MEDS: LORATADINE 10 MG TAB PO SCH ×2 (09:15→09:17)
[2021-09-20] MEDS: LABETALOL 200 MG TAB PO SCH (09:15)
[2021-09-20] MEDS: PREGABALIN 50 MG CAP PO SCH (09:15)
[2021-09-20] MEDS: ACETAMINOPHEN TAB 325 MG TAB PO PRN (09:25)
[2021-09-20 13:13] LABS: Basophils % (A) 1 %; Eosinophils # (A) 0.1 k/uL (0-0.7); Eosinophils % (A) 2 %; HCT 42.1 % (34.0-46.0); Lymphocytes # (A) 1.4 k/uL (1.0-4.8); Lymphocytes % (A) 18 %; MCHC 33.3 g/dL (31.0-37.0); Mean Platelet Volume 9.2; Monocytes # (A) 0.4 k/uL (0-1.0); Monocytes % (A) 5 %; Neutrophils # (A) 5.6 k/uL (1.3-7.7); Neutrophils % (A) 72 %; Platelet Count 250 k/uL (150-450); RBC 4.25 m/uL (3.80-5.40); RDW 13.5 % (11.5-15.5); WBC 7.7 k/uL (3.8-10.6)
[2021-09-20 13:31] LABS: African American GFR (CKD) >90 (>60 ml/min/1.73 sqM); Anion Gap 6 mmol/L; Blood Urea Nitrogen 9 mg/dL (7-17); Calcium 8.9 mg/dL (8.4-10.2); Carbon Dioxide 23 mmol/L (22-30); Chloride 107 mmol/L (98-107); Glucose 99 mg/dL (74-99); Non-African American GFR(CKD) >90 (>60 ml/min/1.73 sqM); Potassium 4.6 mmol/L (3.5-5.1); Sodium 136 mmol/L (137-145)
--- NOTE | 2021-09-20 17:20 | P.DS ---
Providers Date of admission: 09/19/2021 Attending physician: Tim Jordan Primary care physician: Martínez Silverio MD Hospital Course: This is a pleasant 41-year-old female patient who was diagnosed recently with resistant hypertension. She underwent computed tomography scan and that revealed evidence of FMD of the right renal artery. She underwent yesterday successful balloon angioplasty of the right renal artery from right groin approach. She was seen this morning. She was asymptomatic. The pressure has been under excellent control. The right groin is soft and nontender and without any bruit is. The patient is going to be discharged home on dual antiplatelet therapy and she will follow-up with Dr. Del Rio. Plan - Discharge Summary Discharge Rx Participant: No New Discharge Prescriptions: New Aspirin 325 mg PO DAILY #90 tab Clopidogrel Bisulfate [Plavix] 75 mg PO DAILY #90 tab Continue Dextroamphetamine/Amphetamine [Dextroamp-Amphetamin 20 mg Tab] 30 mg PO DAILY Dextroamphetamine/Amphetamine [Dextroamp-Amphetamin 20 mg Tab] 20 mg PO W/SUPPER Pregabalin [Lyrica] 50 mg PO TID Labetalol [Trandate] 200 mg PO BID Spironolactone [Aldactone] 25 mg PO DAILY QUEtiapine [SEROquel] 100 mg PO HS lamoTRIgine [lamoTRIgine ER] 300 mg PO DAILY Omeprazole Magnesium [PriLOSEC OTC] 20 mg PO HS Cetirizine HCl 10 mg PO DAILY amLODIPine [Norvasc] 10 mg PO DAILY Discharge Medication List Dextroamphetamine/Amphetamine [Dextroamp-Amphetamin 20 mg Tab] 20 mg PO W/SUPPER 10/11/19 [History] Dextroamphetamine/Amphetamine [Dextroamp-Amphetamin 20 mg Tab] 30 mg PO DAILY 10/11/19 [History] Cetirizine HCl 10 mg PO DAILY 07/19/21 [History] Omeprazole Magnesium [PriLOSEC OTC] 20 mg PO HS 07/19/21 [History] QUEtiapine [SEROquel] 100 mg PO HS 07/19/21 [History] Spironolactone [Aldactone] 25 mg PO DAILY 07/19/21 [History] amLODIPine [Norvasc] 10 mg PO DAILY 07/19/21 [History] lamoTRIgine [lamoTRIgine ER] 300 mg PO DAILY 07/19/21 [History] Labetalol [Trandate] 200 mg PO BID 09/13/21 [History] Pregabalin [Lyrica] 50 mg PO TID 09/13/21 [History] Aspirin 325 mg PO DAILY #90 tab 09/20/21 [Rx] Clopidogrel Bisulfate [Plavix] 75 mg PO DAILY #90 tab 09/20/21 [Rx] Follow up Appointment(s)/Referral(s): Hema Del Rio MD [STAFF PHYSICIAN] - 1 Week (THE OFFICE WILL CALL YOU WITH AND APPOINTMENT DATE AND TIME) Patient Instructions/Handouts: Angiogram (DC), Procedural Sedation (ED) Discharge Disposition: HOME SELF-CARE
== END 2021-09-20 13:19 | disposition home or self-care (01) ==
LOC: CATHCVL 08:59 → 6NMEDSUR 12:43 → CATHCVL 09-20 13:19
PROVIDERS: ATTEND Internal Medicine Interventional Cardiology
DX: I77.3 Arterial fibromuscular dysplasia (principal); I10 Essential (primary) hypertension; Z20.822 Contact with and (suspected) exposure to COVID-19; Z79.899 Other long term (current) drug therapy; Z88.0 Allergy status to penicillin
CPT/HCPCS: 36251; 37252; 37246; 80048; 85025; 87635; C1887; C1725; C1769 ×6; C1894 ×2; C1753; C1760; J2250; J2001; J3010; J1644; J1170; Q9966

== ENCOUNTER → 2021-12-27 | Outpatient (CLI) | payer BC, OTHER ==
--- NOTE | 2021-12-27 12:25 | CONS ---
CONSULTATION DATE OF SERVICE: 12/27/2021 This 41-year-old lady has been evaluated in [facility] for her sleep problems, including excessive daytime sleepiness, snoring, and multiple awakenings from sleep. HISTORY OF PRESENT ILLNESS/SLEEP-WAKE EVALUATION: This patient was diagnosed with narcolepsy in our institution in 2018. Since that time she has been on treatment with Adderall for excessive daytime sleepiness. Her previous sleep study was negative for obstructive sleep apnea-hypopnea syndrome, but since the previous sleep study the patient's weight has significantly increased by around 18 pounds, and the patient at present has loud snoring and wakes up from sleep about 4 to 5 times with 3 or 4 episodes of nocturia. Positive history of gasping for air and choking. Also the patient has sudden jerking leg movements during the night. Occasional history of hypnagogic hallucinations. No history of cataplexy or sleep paralysis. During the day the patient takes 4 or more naps, and this is with 50 mg of Adderall during the day. [place] Sleepiness Scale is significantly increased at 15. PAST MEDICAL HISTORY: Positive for hypertension, balloon angioplasty of right renal artery, depression, possible premenopausal symptoms. PAST SURGICAL HISTORY: Partial hysterectomy, breast augmentation, balloon angioplasty for right renal artery. REVIEW OF SYSTEMS: Sleepiness during the day, multiple awakenings from sleep, loud snoring. No fevers. No double vision. No recent chest pain. No shortness of breath. No abdominal pain. No bleeding episodes. No blood in the urine. No seizure episodes. FAMILY HISTORY: Positive for hypertension, heart problems, stroke, diabetes, mental illness. SOCIAL HISTORY: Positive for smoking in the past; quit in 2016. Alcohol consumption occasional. PHYSICAL EXAMINATION: GENERAL: Pleasant lady without distress. VITAL SIGNS: BP 134/88, HR 82, RR 14, height 5 feet 5-1/3 inches, weight 147.6 pounds, body mass index 24.2, temperature 98.0, oxygen saturation at room air 99%. HEENT: PERRLA, EOMI, evaluation of oropharynx showed tongue protrudes midline. Low position of soft palate; Mallampati III to IV. NECK: Supple, no JVD. Thyroid is not palpable. Neck measures 13-3/4 inches in circumference. LUNGS: Clear to percussion and to auscultation. Good air exchange. No wheezing or rhonchi. HEART: S1, S2 regular. No murmurs, gallops, or rubs. ABDOMEN: Soft and nontender. Bowel sounds are present. No organomegaly appreciated. EXTREMITIES: No clubbing or cyanosis. FARM OPERATOR: Awake, alert, and oriented X3. Cranial nerves 2 to 7 intact. There is no fasciculation or atrophy. noted. No focal deficits observed. IMPRESSION: 1. Loud snoring, multiple awakenings from sleep with choking up to 5 times per night, low position of soft palate, Mallampati III to IV; possible obstructive sleep apnea- hypopnea syndrome. Previous sleep study was negative, but since that time the patient's weight has significantly increased. 2. Symptoms of possible perimenopause. Menopause for females increases the risk for sleep apnea. 3. Narcolepsy, type 2. Currently on treatment with Adderall. The patient still feels sleepy during the day. 4. History of hypertension. 5. History of depression. 6. Status post balloon angioplasty for right renal artery. 7. Status post partial hysterectomy. PLAN: 1. Home sleep apnea test to check patient's breathing during sleep. 2. Following plan after reviewing results of sleep study. 3. The patient still may need a polysomnogram to check her leg movements during sleep. 4. Extreme precautions related to driving. No driving if feeling any sleepiness. 5. Sleep hygiene with regular time in bed for at least 7-1/2 hours. 6. Daytime naps permitted. Thank you very much for referring this patient for consultation. Sincerely, Agustin Cordova MD, PhD, FAASM Diplomat of [place] [employer] Sleep Medicine Board of [place] [employer] [facility] [place] MMALFONZOL / ELIECERN: [id number] /
== END ==
LOC: SLEEP 10:51
PROVIDERS: ATTEND Internal Medicine
DX: G47.419 Narcolepsy without cataplexy (principal); I10 Essential (primary) hypertension; F32.A Depression, unspecified; Z87.891 Personal history of nicotine dependence; Z90.711 Acquired absence of uterus with remaining cervical stump; Z98.890 Other specified postprocedural states; Z88.0 Allergy status to penicillin
CPT/HCPCS: 99211

== ENCOUNTER → 2022-01-08 | Outpatient (CLI) | payer OTHER ==
[2022-01-08 22:44] LABS: African American GFR (CKD) 97.5 (60.0-200.0); Anion Gap 12.5 mmol/L (10.00-18.00); BUN/Creat Ratio 18.31 Ratio (12.00-20.00); Blood Urea Nitrogen 15.8 mg/dL (9.0-27.0); Calcium 9.1 mg/dL (8.7-10.3); Carbon Dioxide 24.9 mmol/L (20.0-27.5); Non-African American GFR(CKD) 84.1 (60.0-200.0); Potassium 3.3 mmol/L (3.5-5.5)
== END | disposition home or self-care (01) ==
LOC: LABWHC1 15:21
PROVIDERS: ATTEND Internal Medicine Clinical Cardiac Electrophysiology
DX: I70.1 Atherosclerosis of renal artery (principal)
CPT/HCPCS: 36415; 80048

== ENCOUNTER → 2022-03-01 | Outpatient (CLI) | payer OTHER ==
--- NOTE | 2022-03-01 10:47 | US ---
EXAMINATION TYPE: US renal artery duplex complet DATE OF EXAM: 03/01/2022 COMPARISON: CTA April 11, 2021. Prior renal artery duplex February 09, 2021 CLINICAL HISTORY: I70.1 Atherosclerosis of renal artery. HTN for years. history of renal artery steno sis. right stent placed 10/09 (PTCA) MEASUREMENTS: RENAL SIZE: Rt Kidney: 11.9 x 3.8 x 4.2cm Lt Kidney: 11.1 x 4.4 x 4.3cm RESISTANCE INDEX Right: 0.62 Left: 0.61 RA/AO RATIO (< 3.5 ) Right: 3.5 Left: 3.0 RA VELOCITY ( < 180 cm/s) Right: 287.1cm/s Left: 247.9cm/s Aorta and renals appear unremarkable. Bilateral renal artery stenosis, greater on the right. No aneurysmal change of visualized abdominal aorta. Kidneys symmetric and normal in size. More promin ent elevated renal artery velocities bilaterally with tortuous course and some wall irregularities ri ght renal artery mid segment redemonstrated. IMPRESSION: Increasing velocities raises concern for worsening stenosis bilaterally particularly mid segment of the right renal artery at area of CTA concern. Correlate clinically. Consider CTA/MRA of t he abdomen or direct catheter angiogram to further evaluate.
== END | disposition home or self-care (01) ==
LOC: RADUSWWP 08:59
PROVIDERS: ATTEND Internal Medicine Clinical Cardiac Electrophysiology
DX: I70.1 Atherosclerosis of renal artery (principal); I10 Essential (primary) hypertension
CPT/HCPCS: 93975

== ENCOUNTER → 2022-04-04 | Outpatient (CLI) | payer OTHER ==
--- NOTE | 2022-04-05 07:27 | MM ---
Reason for Exam: Hx of breast augmentation, asymptomatic. Last mammogram was performed 1 year(s) and 1 month(s) ago. Patient History: Menarche at age 16. First Full-Term at age 19. Hysterectomy at age 34. 08/17/2012, Implant(s). Risk Values: Christa 5 year model risk: 0.4%. NCI Lifetime model risk: 6.6%. Prior Study Comparison: 02/24/2015 Bilateral Diagnostic Mammogram, [facility]. 02/23/2021 Bilateral Screening Mammogram, [facility]. Tissue Density: The breast tissue is heterogeneously dense. This may lower the sensitivity of mammography. Findings: Analyzed By CAD. Bilateral subpectoral implants are redemonstrated. Benign-appearing bilateral axillary lymph nodes again seen. There is no suspicious group of microcalcifications or new suspicious mass in either breast. Overall Assessment: Benign, BI-RAD 2 Management: Screening Mammogram of both breasts in 1 year. A clinical breast exam by your physician is recommended on an annual basis and results should be correlated with mammographic findings. Electronically signed and approved by: Navid Medina M.D.
== END | disposition home or self-care (01) ==
LOC: RADMAMWWP 14:58
PROVIDERS: ATTEND Obstetrics & Gynecology
DX: Z12.31 Encounter for screening mammogram for malignant neoplasm of breast (principal)
CPT/HCPCS: 77067

== ENCOUNTER 2022-07-15 11:07 | Emergency (ER) | payer OTHER ==
[2022-07-15 11:43] VITALS: TEMP 97.7
[2022-07-15] MEDS ORDERED: HYDROmorphone 0.5 MG/0.5 ML SYRINGE IVP STA ×2 (13:38→15:13)
[2022-07-15] MEDS ORDERED: methylPREDNISolone SOD SUCCI 125 MG/2 ML VIAL IV STA (13:38)
[2022-07-15] MEDS ORDERED: KETOROLAC 15 MG/ML 1 ML VIAL IVP STA (13:38)
[2022-07-15] MEDS ORDERED: ONDANSETRON 4 MG/2 ML VIAL IVP STA (13:38)
--- NOTE | 2022-07-15 14:28 | ED ---
Back Pain HPI - General Chief Complaint: Back Pain/Injury Stated Complaint: back pain Time Seen by Provider: 07/15/22 13:13 Source: patient, RN notes reviewed Mode of arrival: ambulatory Limitations: no limitations - History of Present Illness Initial Comments: 42-year-old female presented emergency Department chief complaint of low back pain. Patient states that she injured it 2 weeks ago after lifting a told above her head. Patient states she started having some discomfort has progressively worsened. Patient states more she does have the worse or symptoms are getting. Patient states she has pain rating down her right leg she denies any bowel, bladder incontinence or retentionand last seizures. Patient has a history of severe back pain at this. She states that she's been constipated this is not out of the usual no dysuria no hematuria. - Related Data Home Medications Medication Instructions Recorded Confirmed Dextroamphetamine/Amphetamine 20 mg PO W/SUPPER 10/11/19 09/19/21 [Dextroamp-Amphetamin 20 mg Tab] Dextroamphetamine/Amphetamine 30 mg PO DAILY 10/11/19 09/19/21 [Dextroamp-Amphetamin 20 mg Tab] Cetirizine HCl 10 mg PO DAILY 07/19/21 09/19/21 Omeprazole Magnesium [PriLOSEC OTC] 20 mg PO HS 07/19/21 09/19/21 QUEtiapine [SEROquel] 100 mg PO HS 07/19/21 09/19/21 Spironolactone [Aldactone] 25 mg PO DAILY 07/19/21 09/19/21 amLODIPine [Norvasc] 10 mg PO DAILY 07/19/21 09/19/21 lamoTRIgine [lamoTRIgine ER] 300 mg PO DAILY 07/19/21 09/19/21 Labetalol [Trandate] 200 mg PO BID 09/13/21 09/19/21 Pregabalin [Lyrica] 50 mg PO TID 09/13/21 09/19/21 Previous Rx's Medication Instructions Recorded Aspirin 325 mg PO DAILY #90 tab 09/20/21 Clopidogrel Bisulfate [Plavix] 75 mg PO DAILY #90 tab 09/20/21 Cyclobenzaprine [Flexeril] 10 mg PO TID PRN #15 tab 07/15/22 HYDROcodone/APAP 5-325MG [Brighton 5] 1 each PO Q6HR PRN #12 tab 07/15/22 predniSONE 50 mg PO DAILY #5 tab 07/15/22 Allergies Allergy/AdvReac Type Severity Reaction Status Date / Time Penicillins Allergy Unknown Verified 07/15/22 11:43 Childhood Review of Systems ROS Statement: Those systems with pertinent positive or pertinent negative responses have been documented in the HPI. ROS Other: All systems not noted in ROS Statement are negative. Past Medical History Past Medical History: GERD/Reflux, Hypertension, Seizure Disorder Additional Past Medical History / Comment(s): narcolepsy. diverticulitis History of Any Multi-Drug Resistant Organisms: None Reported Past Surgical History: Breast Surgery, Hysterectomy, Uterine Ablation Additional Past Surgical History / Comment(s): breast augmentation, uterine abl ation Past Anesthesia/Blood Transfusion Reactions: No Reported Reaction Past Psychological History: Anxiety, Panic Disorder Smoking Status: Former smoker Past Alcohol Use History: Occasional Past Drug Use History: Marijuana - Past Family History Mother Family Medical History: Cancer, Diabetes Mellitus, Hypertension Additional Family Medical History / Comment(s): "HEART DISORDER" Father Family Medical History: Cancer General Exam Limitations: no limitations General appearance: alert, in no apparent distress Head exam: Present: atraumatic, normocephalic, normal inspection Eye exam: Present: normal appearance, PERRL, EOMI. Absent: scleral icterus, conjunctival injection, periorbital swelling ENT exam: Present: normal exam, mucous membranes moist Neck exam: Present: normal inspection, full ROM. Absent: tenderness, meningismus, lymphadenopathy Respiratory exam: Present: normal lung sounds bilaterally. Absent: respiratory distress, wheezes, rales, rhonchi, stridor Cardiovascular Exam: Present: normal rhythm, tachycardia, normal heart sounds. Absent: systolic murmur, diastolic murmur, rubs, gallop, clicks Back exam: Present: tenderness, muscle spasm, paraspinal tenderness, vertebral tenderness. Absent: full ROM, CVA tenderness (R), CVA tenderness (L) Neurological exam: Present: alert, oriented X3, CN II-XII intact, reflexes normal. Absent: motor sensory deficit Skin exam: Present: warm, dry, intact, normal color. Absent: rash Course Vital Signs 07/15/22 11:39 Temperature 97.7 F Pulse Rate 110 H Respiratory 18 Rate Blood Pressure 132/72 O2 Sat by Pulse 98 Oximetry Medical Decision Making - Medical Decision Making 42-year-old female presented from for low back pain. Patient's pain has been present worse and last couple weeks. She does have some mild radicular symptoms with no red flag symptoms. She has equal pedal pulses and no vascular issues noted. Patient did have imaging of her back for CT read by me shows no acute process and read by radiologist. Patient pain was under control was discharged in stable condition with pain control. Disposition Clinical Impression: Lumbar radiculopathy Disposition: HOME SELF-CARE Condition: Stable Instructions (If sedation given, give patient instructions): Acute Low Back Pain (ED) Additional Instructions: Please return to the Emergency Department if symptoms worsen or any other concerns. Prescriptions: Cyclobenzaprine [Flexeril] 10 mg PO TID PRN #15 tab PRN Reason: Muscle Spasm HYDROcodone/APAP 5-325MG [Brighton 5] 1 each PO Q6HR PRN #12 tab PRN Reason: Pain predniSONE 50 mg PO DAILY #5 tab Is patient prescribed a controlled substance at d/c from ED?: Yes When asked, does pt state using other controlled substances?: No If prescribed controlled substance>3 days was MAPS reviewed?: Prescribed <3 Days If opioid is for acute pain is fill amount 7 days or less?: Yes If Rx opioid, was Start Talking consent form obtained?: Yes Referrals: Martínez Silverio MD [Primary Care Provider] - 1-2 days Time of Disposition: 14:54
--- NOTE | 2022-07-15 14:35 | CT ---
EXAMINATION TYPE: CT lumbar spine wo con DATE OF EXAM: 07/15/2022 2:13 PM COMPARISON: CTA abdomen and pelvis April 11, 2021 HISTORY: Back pain CT DLP: 665.5 mGycm Automated exposure control for dose reduction was used. Unenhanced CT of the lumbar spine was performed. Bone and soft tissue window settings are submitted as well as coronal and sagittal reconstructions. There are 5 lumbar-type vertebra redemonstrated. Slight dextroconvex scoliosis centered upper lumbar spine again seen. Vertebral body heights and disc space heights are maintained. No new large posterio r disc herniation on sagittal or axial images. Mild facet arthropathy lower lumbar spine. Bilateral n eural foramina appear patent. Few diverticula proximal sigmoid colon left pelvis are seen. Tubal liga tion clips in the bilateral pelvis are partially imaged. IMPRESSION: No acute findings are evident. No large disc herniation seen. No significant change from prior CT.
[2022-07-15] MEDS ORDERED: ORPHENADRINE 30 MG/ML 2 ML VIAL IVP STA (14:45)
[2022-07-15 16:08] VITALS: BP 119/78; PULSE 82; RESP 15
== END 2022-07-15 16:08 | disposition home or self-care (01) ==
LOC: EC 11:07
DX: M54.16 Radiculopathy, lumbar region (principal); K21.9 Gastro-esophageal reflux disease without esophagitis; I10 Essential (primary) hypertension; F41.9 Anxiety disorder, unspecified; F12.90 Cannabis use, unspecified, uncomplicated; Z87.891 Personal history of nicotine dependence; Z88.0 Allergy status to penicillin; Z79.899 Other long term (current) drug therapy
CPT/HCPCS: 72131; 99284; 96374; 96375 ×4; 96376; J2360; J2930; J2405; J1885; J1170

== ENCOUNTER → 2023-04-11 | Outpatient (CLI) | payer OTHER ==
--- NOTE | 2023-04-14 11:25 | MM ---
EXAM: MG 3D screen mammo imp/cad DATE OF EXAM: 04/11/2023 1:36 PM COMPARISON STUDIES: 02/24/2015 Bilateral Diagnostic Mammogram, [facility]. 02/23/2021 Bilateral Screening Mammogram, [facility]. 04/04/2022 Bilateral MG screening mammo implant/CAD, [facility]. PATIENT HISTORY: Female, 43 years old with history of Z12.31 SCR; , Menarche at age 16. First Full-Term at age 19. Hysterectomy at age 34. Patient has history of breast feeding. 08/17/2012, Implant(s). , RISK CALCULATION: Christa 5 year model risk: 0.4%. NCI Lifetime model risk: 6.6%. TISSUE DENSITY: Heterogeneously dense FINDINGS: Bilateral breast implants are intact. There is no suspicious group of microcalcifications or new suspicious mass in either breast. ASSESSMENT: 2 - Benign RECOMMENDATION: 1. Screening Mammogram Bilateral in 1 Year . COMMENTS: [facility] will attempt to contact patient to return for supplemental views and ultrasound if indicated. Patient should continue monthly self-breast exams. A clinical breast exam by your physician is recommended on an annual basis. This exam should not preclude additional follow-up of suspicious palpable abnormalities. Note on Christa scores and lifetime risk: 1. A Christa score greater than 3% is considered moderate risk. If this is the case, consider specialist referral to assess eligibility for a risk reducing agent. 2. If overall lifetime risk for the development of breast cancer is 20% or higher, the patient may qualify for future screening with alternating mammogram and breast MRI. JOSHUA
== END | disposition home or self-care (01) ==
LOC: RADMAMWWP 13:04
PROVIDERS: ATTEND Family Medicine
DX: Z12.31 Encounter for screening mammogram for malignant neoplasm of breast (principal)
CPT/HCPCS: 77063; 77067

== ENCOUNTER → 2024-05-14 | Outpatient (CLI) | payer OTHER ==
--- NOTE | 2024-05-16 20:20 | MM ---
Reason for Exam: Screening (asymptomatic). Last mammogram was performed 1 year(s) and 1 month(s) ago. Patient History: Menarche at age 16. First Full-Term at age 19. Hysterectomy at age 34. Patient has history of breast feeding. 08/17/2012, Implant(s). Risk Values: Christa 5 year model risk: 0.5%. NCI Lifetime model risk: 6.5%. Prior Study Comparison: 02/23/2021 Bilateral Screening Mammogram, [facility]. 04/04/2022 Bilateral MG screening mammo implant/CAD, [facility]. 04/11/2023 Bilateral MG 3D screen mammo imp/cad., [facility]. Tissue Density: There are scattered areas of fibroglandular density. Findings: Analyzed By CAD. The pattern is symmetrical. Bilateral breast prostheses are present. No suspicious groups of microcalcifications, spiculated or lobular masses, architectural distortion or other secondary signs of malignancy are mammographically apparent. Overall Assessment: Benign, BI-RAD 2 Management: Screening Mammogram of both breasts in 1 year. A negative mammogram report should not preclude additional follow up of suspicious palpable abnormalities. Patient should continue monthly self breast exam. A clinical breast exam by your physician is recommended on an annual basis and results should be correlated with mammographic findings. Note on Christa scores and lifetime risk: 1. A Christa score greater than 3% is considered moderate risk. If this is the case, consider specialist referral to assess eligibility for a risk reducing agent. 2. If overall lifetime risk for the development of breast cancer is 20% or higher, the patient may qualify for future screening with alternating mammogram and breast MRI. [facility], , 05/16/2024 8:17 PM. Electronically signed and approved by: Mike Samson D.O. Radiologis
== END | disposition home or self-care (01) ==
LOC: RADMAMWWP 09:17
PROVIDERS: ATTEND Family Medicine
DX: Z12.31 Encounter for screening mammogram for malignant neoplasm of breast
CPT/HCPCS: 77063; 77067

== ENCOUNTER → 2024-07-08 | Outpatient (CLI) | payer OTHER ==
--- NOTE | 2024-07-08 12:26 | US ---
EXAMINATION TYPE: US renal artery duplex complet DATE OF EXAM: 07/08/2024 COMPARISON: MM or a renal to 2222, renal artery duplex ultrasound 03/01/2022 CLINICAL INDICATION: Female, 44 years old with history of I77.3 ARTERIAL FIBROMUSCULAR DYSPLASIA; Hx right renal artery stent placed 09/2021; Patient complains of new onset midline pain TECHNIQUE: Grayscale, color Doppler and spectral Doppler imaging of the bilateral renal arteries and kidneys. FINDINGS: MEASUREMENTS: RENAL SIZE: Right Kidney: 10.7 x 4.1 x 4.2 Left Kidney: 11.9 x 6.0 x 5.3 Right Kidney: wnl Left Kidney: wnl Abd Aorta: wnl RESISTANCE INDEX Right: 0.74 Left: 0.64 RA/AO RATIO (< 3.5 ) Right: 1.2 Left: 0.8 RENAL ARTERY VELOCITY ( < 180 cm/s) Right: 132 Left: 85 Appropriate color Doppler flow and spectral waveforms to the kidneys bilaterally. IMPRESSION: No ultrasound evidence for renal artery stenosis. Consider further evaluation with CTA or MRA as clin ically indicated. [facility], , 07/08/2024 12:24 PM
== END | disposition home or self-care (01) ==
LOC: RADUSWWP 06-21 07:16
PROVIDERS: ATTEND Internal Medicine Clinical Cardiac Electrophysiology
DX: I77.3 Arterial fibromuscular dysplasia (principal)
CPT/HCPCS: 93975